=== PATIENT | female | born 1935 ===

== ENCOUNTER 2016-10-16 07:30 | Inpatient (IN) | payer MEDICARE, OTHER ==
[~2016-10-16] VITALS: Ht 154.9 cm; Wt 90.3 kg
[2016-10-30] VITALS (16 sets, daily range): BP systolic 85–131; BP diastolic 45–67
[2016-10-30] MEDS ORDERED: ceFAZolin 1gm/50ml Premix 50 ML IV ONE (07:00)
[2016-10-30] MEDS ORDERED: NORVASC10 MG ORAL (07:08)
[2016-10-30] MEDS ORDERED: ASPIR 8181 MG ORAL (07:09)
[2016-10-30] MEDS ORDERED: CARDURA PO (07:10)
[2016-10-30] MEDS ORDERED: Surgicel 4in x 8in TOPIC ONE (07:11)
[2016-10-30] MEDS ORDERED: Bacitracin Oint 15gm Tube TOPIC ONE (07:11)
[2016-10-30] MEDS ORDERED: AMARYL PO (07:12)
[2016-10-30] MEDS ORDERED: METFORMIN HCL1000 M1 ORAL (07:13)
[2016-10-30] MEDS ORDERED: HYZAAR 100-251 EACH ORAL (07:14)
[2016-10-30] MEDS ORDERED: SIMVASTATIN40 MG ORAL (07:14)
[2016-10-30] MEDS ORDERED: NOVOLIN N100 UNIT/1 SUBQ (07:15)
[2016-10-30] MEDS ORDERED: Sterile Water For Irrig 2000ml IRRIG ONE (07:30)
[2016-10-30] MEDS ORDERED: LR 1000ml ONE (07:30)
[2016-10-30] MEDS ORDERED: NS Irrig 1000ml ONE (07:30)
[2016-10-30] MEDS ORDERED: Dexamethasone 4mg/ml vial ONE (07:30)
[2016-10-30] MEDS ORDERED: NS Irrig 1000ml IRRIG ONE (07:30)
[2016-10-30] MEDS ORDERED: Zemuron 50mg/5ml Inj IV ONE (07:30)
[2016-10-30] MEDS ORDERED: Glycopyrrolate 0.2mg/ml 1ml Vial ONE (07:30)
--- NOTE | 2016-10-30 07:39 | Pre-Procedure Note/Attestation ---
Pre-Procedure Note/Attestation Complete Prior to Procedure Planned Procedure: not applicable Procedure Narrative: radical cystectomy with neobladder possible ileal conduit Indications for Procedure Pre-Operative Diagnosis: bladder cancer Attestation I attest that I discussed the nature of the procedure; its benefits; risks and complications; and alternatives (and the risks and benefits of such alternatives ), prior to the procedure, with the patient (or the patient's legal senior patient account representative). I attest that, if there was a reasonable possibility of needing a blood transfusion, the patient (or the patient's legal senior patient account representative) was given the [facility] standardized written summary, pursuant to the Babatunde Eneida Blood Safety Act ([place] Health and Safety Code # 1645, as amended). I attest that I re-evaluated the patient just prior to the surgery and that there has been no change in the patient's H&P, except as documented below: Dariel Elizabeth MD Oct 30, 2016 07:39
[2016-10-30] MEDS ORDERED: Duramorph PF 5mg/10ml amp EPIDUR ONE (08:00)
[2016-10-30] MEDS ORDERED: cefOXitin 2gm Inj ONE (08:20)
--- NOTE | 2016-10-30 10:12 | Anethesia Preoperative Eval ---
Anesthesia Pre-op PMH/ROS General Date of Evaluation: Oct 30, 2016 Time of Evaluation: 07:25 Anesthesiologist: Gladys ASA Score: ASA 3 Mallampati Score Class I : Soft palate, uvula, fauces, pillars visible Class II: Soft palate, uvula, fauces visible Class III: Soft palate, base of uvula visible Class IV: Only hard plate visible Mallampati Classification: Class II Surgeon: Glenn Diagnosis: BLADDER Cancer Surgical Procedure: Cystectomy Anesthesia History: none Family History: no anesthesia problems Allergies: Coded Allergies: No Known Allergies (Unverified , 10/29/16) Medications: see eMAR Past Medical History Cardiovascular: Reports: HTN Pulmonary: Denies: COPD, CHACHO, asthma, other Gastrointestinal/Genitourinary: Denies: CRI, ESRD, GERD, other Endocrine: Reports: DM HEENT: Denies: NENANA (L), NENANA (R), cataract (L), cataract (R), glaucoma, other Hematology/Immune: Denies: DVT, anemia, bleeding disorder, other Musculoskeletal/Integumentary: Reports: DJD Anesthesia Pre-op Phys. Exam Physician Exam Last Vital Signs Date Time Temp Pulse Resp B/P Pulse Ox O2 Delivery O2 Flow Rate FiO2 10/30/16 07:30 98.5 58 18 131/67 95 Room Air Neurologic: CN 2-12 intact Cardiovascular: RRR, no M/R/G Respiratory: CTA Gastrointestinal: S/NT/ND Airway Exam Mallampati Score: Class II ROM: full Dentures: lower, upper WILLIAM FRY M.D. Oct 30, 2016 10:12
[2016-10-30] MEDS ORDERED: Hydromorphone 0.5mg/0.5ml inj IVP PRN (10:15)
[2016-10-30] MEDS ORDERED: Ketorolac 30mg Inj IV PRN (10:15)
[2016-10-30] MEDS ORDERED: Norco 5mg/325mg tab ORAL PRN (10:15)
[2016-10-30] MEDS ORDERED: fentaNYL 100 mcg/2 mL IV PRN (10:15)
[2016-10-30] MEDS ORDERED: metroNIDAZOLE 500mg 100 ML ONE (10:19)
[2016-10-30] MEDS ORDERED: Neostigmine 1mg/ml 10ml Inj ONE (12:03)
[2016-10-30] MEDS ORDERED: D5 1/2NS w/KCl 20mEq 1,000 ML IV SCH (12:05)
--- NOTE | 2016-10-30 12:11 | Brief Operative Note ---
Immediate Post Operative Note Operative Note Pre-op Diagnosis: bladder cancer Procedure: Radical cystectomy with neobladder Post-op Diagnosis: same Post-op Diagnosis: same as pre-op Surgeon: Eugenio Elizabeth Laundry Pricing Clerk: Stan Salguero Anesthesia: general Specimen: yes Complications: none Condition: stable Estimated Blood Loss: minimal Drains: FERDINAND Implant(s) used?: No Dariel Elizabeth MD Oct 30, 2016 12:11
[2016-10-30] MEDS ORDERED: HYDROmorphone 1mg/ml Carpuject IVP PRN (12:15)
[2016-10-30 13:03] LABS: BASOPHILS % (AUTO) 0.9 % (0.0-2.0); EOSINOPHILS % (AUTO) 0.3 % (0.0-3.0); MEAN CORPUSCULAR HEMOGLOBIN 30.7 PG (27.0-31.0); MEAN CORPUSCULAR HGB CONC 32.1 G/DL (32.0-36.0); MEAN CORPUSCULAR VOLUME 95 FL (80-99); MEAN PLATELET VOLUME 7.8 FL (6.5-10.1); MONOCYTES % (AUTO) 6.5 % (1.0-10.0); NEUTROPHILS % (AUTO) 81.4 % (45.0-75.0); PLATELET COUNT 212 K/UL (150-450); RED BLOOD COUNT 3.52 M/UL (4.20-5.40); WHITE BLOOD COUNT 14.5 K/UL (4.8-10.8)
[2016-10-30 13:08] LABS: IONIZED CALCIUM 1.02 mmol/L (1.10-1.35)
[2016-10-30 13:14] LABS: ANION GAP 11 (5-15); CALCIUM 7.8 mg/dL (8.6-10.2); CARBON DIOXIDE 25 mEQ/L (20-30); CHLORIDE 105 mEQ/L (98-107); HEMOLYSIS 8; MAGNESIUM 1.6 mg/dL (1.7-2.5); PHOSPHORUS 4.4 mg/dL (2.5-4.8); POTASSIUM 4.3 mEQ/L (3.4-4.9); SODIUM 141 mEQ/L (135-145)
[2016-10-30] MEDS ORDERED: LORazepam Inj 2mg/ml 1ml IV ONE (13:30)
--- NOTE | 2016-10-30 14:06 | Immediate Post-Op Evaluation ---
Immediate Post-Op Evalulation Immediate Post-Op Evalulation Procedure: Custectomy Date of Evaluation: Oct 30, 2016 Time of Evaluation: 12:25 IV Fluids: NS 4L, Alb 5% 500ml, Blood Products: PRBC 2U Estimated Blood Loss: 1500 Urinary Output: 400 Blood Pressure Systolic: 110 Blood Pressure Diastolic: 80 Pulse Rate: 65 Respiratory Rate: 20 O2 Sat by Pulse Oximetry: 98 Temperature (Fahrenheit): 98 Pain Score (1-10): 2 Nausea: No Vomiting: No Complications na Patient Status: awake Hydration Status: adequate Drug: Cefoxitin 2G Given Within 1 Hr of Incision: Yes Time Given: 08:00 WILLIAM FRY M.D. Oct 30, 2016 14:06
[2016-10-30] MEDS: cefOXitin Sod 2 GM in D5W 110 ML IV SCH ×2 (18:03→22:46)
[2016-10-30] MEDS: NovoLOG Insulin Flexpen SUBQ SCH ×2 (18:04→22:15)
[2016-10-31] VITALS: BP 100/56
[2016-10-31 04:00] VITALS: BP 99/58
[2016-10-31] MEDS: cefOXitin Sod 2 GM in D5W 110 ML IV SCH (04:31)
[2016-10-31 05:16] LABS: MEAN CORPUSCULAR HEMOGLOBIN 31.1 PG (27.0-31.0); MEAN CORPUSCULAR HGB CONC 32.7 G/DL (32.0-36.0); MEAN CORPUSCULAR VOLUME 95 FL (80-99); MEAN PLATELET VOLUME 6.9 FL (6.5-10.1); PLATELET COUNT 197 K/UL (150-450); RED CELL DISTRIBUTION WIDTH 13.3 % (11.6-14.8); WHITE BLOOD COUNT 15.5 K/UL (4.8-10.8)
[2016-10-31 05:45] LABS: ANION GAP 11 (5-15); CALCIUM 7.7 mg/dL (8.6-10.2); CARBON DIOXIDE 25 mEQ/L (20-30); CHLORIDE 102 mEQ/L (98-107); CREATININE 1.3 mg/dL (0.5-0.9); HEMOLYSIS 4; POTASSIUM 5.5 mEQ/L (3.4-4.9); SODIUM 138 mEQ/L (135-145)
[2016-10-31] MEDS: NovoLOG Insulin Flexpen SUBQ SCH ×4 (05:55→20:25)
[2016-10-31] MEDS ORDERED: Calcium Gluconate 10% 2 GM in NS 110 ML IVPB ONE (06:45)
[2016-10-31] MEDS ORDERED: Sodium Polystyrene Sulfonate Enema RECTAL ONE (06:45)
[2016-10-31] MEDS ORDERED: Calcium Gluconate 1gm/10ml vial ONE (06:52)
[2016-10-31 07:30] LABS: IONIZED CALCIUM 0.98 mmol/L (1.10-1.35)
[2016-10-31 08:00] VITALS: BP 100/46
[2016-10-31 08:04] LABS: ABG ALLEN TEST POSITIVE; ABG BASE EXCESS -0.6
--- NOTE | 2016-10-31 10:09 | Diagnostic Imaging Report ---
Indication: SOB Technique: One view of the chest Comparison: none Findings: Patient body habitus limits evaluation. Inspiration is suboptimal. There is crowding of the vascular markings and atelectasis at both lung bases. Minimal consolidation at the left lung base not completely excludable. No definite acute infiltrates, or congestion. There may be slight blunting of the left costophrenic sulcus. The heart is borderline enlarged Impression: Hypoventilatory exam with basilar crowding and atelectasis. Cannot rule out consolidation or small pleural effusion at the left lung base Borderline cardiomegaly This agrees with the preliminary interpretation provided overnight by [facility] teleradiology service.
--- NOTE | 2016-10-31 10:18 | Consultation ---
DATE OF CONSULTATION: 10/31/2016 CONSULTING PHYSICIAN: Kale Iniguez M.D. ATTENDING PHYSICIAN: Dariel Elizabeth M.D. REFERRING PHYSICIAN: Dariel Elizabeth M.D. REASON FOR CONSULTATION: Medical management. HISTORY OF PRESENT ILLNESS: This is a 80-year-old female who was admitted to the medical center. The patient underwent radical cystectomy with neobladder. The patient is postoperatively now hypoxemic. I was called to assist and evaluate further. The patient with scant sputum production. There is no chest pain. The patient's daughter notes increasing edema. The patient's chart was reviewed. The patient had undergone previous tumor removal, but now has extensive symptomatic tumor that required intervention. The patient does have long-standing history of smoking and continues to smoke two packs per day. PAST MEDICAL HISTORY: The patient's past medical history is notable for diabetes, hypertension, hyperlipidemia, and questionable history of underlying lung disease. MEDICATIONS: Reviewed and include Norvasc 10, baby aspirin 81 daily, NPH insulin, Hyzaar, metformin, and Zocor. ALLERGIES: None known. SOCIAL HISTORY: The patient lives at home. She is retired. She does smoke as mentioned, 2 packs per day. She has no significant alcohol use. FAMILY HISTORY: Mother at age 90, otherwise negative. REVIEW OF SYSTEMS: Otherwise as above. PHYSICAL EXAMINATION: GENERAL: A well-developed female in no acute distress. VITAL SIGNS: Temperature 98, heart rate 77, respiratory rate 18, blood pressure 99/58, and saturation 98%. HEENT: Fairly negative. Extraocular movements grossly intact. NECK: Supple. No adenopathy. LUNGS: Moderate breath sounds. Symmetric. No rhonchi or wheezes. CARDIAC: S1 and S2. Regular rate and rhythm without murmurs, rubs, or gallops. ABDOMEN: Overall slightly tender. Minimal bowel sounds. EXTREMITIES: No cyanosis, clubbing, or edema. NEUROLOGIC: Grossly nonfocal. Alert and oriented x3. LABORATORY DATA: Laboratory data reviewed. White blood cell count 18.5, hemoglobin 10, hematocrit 31, platelets 197,000. Chemistry, potassium 5.5, BUN 30, creatinine 1.3, blood sugar 283. IMPRESSION: 1. Acute renal insufficiency, noted hyperkalemia, possibly fluid overload. 2. Hypertension per history. 3. Long-standing history of smoking. 4. Bladder cancer, status post resection. RECOMMENDATION: The patient is on IV hydration. We will give the patient one dose of Lasix. We will also give nebulized therapy. We will obtain chest x-ray and stat ABG. We will obtain sliding scale insulin and monitor clinically. The patient is currently hypotensive and therefore, we will hold any antihypertensive medications at present. Kale Iniguez M.D. DR: Bita JOB#: [id number] CC: BRENNAN
[2016-10-31 10:46] LABS: ANION GAP 12 (5-15); CARBON DIOXIDE 26 mEQ/L (20-30); CHLORIDE 104 mEQ/L (98-107); CREATININE 1.1 mg/dL (0.5-0.9); HEMOLYSIS 3; POTASSIUM 4.6 mEQ/L (3.4-4.9); SODIUM 142 mEQ/L (135-145)
[2016-10-31] MEDS ORDERED: DuoNeb 0.5-3(2.5)mg/3ml neb HHN SCH (11:00)
[2016-10-31] MEDS: DuoNeb 0.5-3(2.5)mg/3ml neb HHN SCH ×4 (11:00→23:12)
--- NOTE | 2016-10-31 11:00 | 48 Hour Post Anesthesia Eval ---
Post Anesthesia Evaluation Procedure: Custectomy Date of Evaluation: Oct 31, 2016 Time of Evaluation: 10:56 Blood Pressure Systolic: 104 0: 57 Pulse Rate: 78 Respiratory Rate: 28 Temperature (Fahrenheit): 97.8 O2 Sat by Pulse Oximetry: 94 - on non rebreather mask hypercapnic Airway: other - slightly obstructed Nausea: No Vomiting: No Pain Intensity: 4 Hydration Status: adequate Cardiopulmonary Status: significant dyspnea at rest some wheezing bilaterally, diminished breath sounds over both lower lobes Mental Status/LOC: other - sedated arousable Follow-up Care/Observations: n/a Post-Anesthesia Complications: none Follow-up care needed: N/A WERO KAMARA M.D. Oct 31, 2016 11:00
[2016-10-31] MEDS ORDERED: NovoLOG Insulin Flexpen SUBQ SCH (11:30)
--- NOTE | 2016-10-31 11:40 | Diagnostic Imaging Report ---
Indication: SOB Technique: One view of the chest Comparison: 10/30/2016 Findings: There is some atelectasis at the left lung base again demonstrated. Heart remains borderline enlarged. Findings are unchanged Impression: Unchanged, over one day, findings as above.
[2016-10-31 12:00] VITALS: BP 113/60
--- NOTE | 2016-10-31 12:11 | Diagnostic Imaging Report ---
APPROVED REPORT CPT Code: 40932 Present Symptoms Shortness of breath BILATERAL: Imaging reveals a patent deep venous system bilaterally. There is no evidence of thrombus within the femoral, popliteal or tibial segments. The greater saphenous veins are also within normal limits. Doppler indicates normal spontaneous flow within these segments.
[2016-10-31 12:37] LABS: ABG ALLEN TEST POSITIVE; ABG BASE EXCESS -1.1; ABG PCO2 53.1 mmHg (35.0-45.0)
[2016-10-31] MEDS: HYDROmorphone 1mg/ml Carpuject IVP PRN ×2 (13:15→19:09)
[2016-10-31 16:00] VITALS: BP 124/59
[2016-10-31 19:00] VITALS: BP 130/66
--- NOTE | 2016-10-31 20:18 | Operative Note - Dictated ---
DATE OF OPERATION: 10/30/2016 PREOPERATIVE DIAGNOSIS: History of muscle invasive bladder cancer. POSTOPERATIVE DIAGNOSIS: History of muscle invasive bladder cancer. OPERATED BY: Dariel Elizabeth M.D. LENS GRINDER ROUGH: Stan Salguero M.D. OPERATION PERFORMED: Radical cystectomy, hysterectomy, oophorectomy with creation of the intestinal neobladder and reimplantation of the . FINDINGS: Remaining urinary bladder. No evidence of distant metastasis. INDICATIONS FOR SURGERY: The patient had TURBT, which showed invasive bladder cancer. Treatment options were explained to her in multiple ways, she underwent several studies including CAT scan and CT scan and eventually decided to go for radical cystectomy with neobladder or ileal conduit. She understands the nature of surgery and all potential complications and signed a consent. She was brought to the operating room, placed in a supine position and prepped and draped in a standard fashion. Under general anesthesia, a midline abdominal incision was made. Peritoneum was entered and ureters were dissected to get a view of the bladder, both ureters were dissected towards the bladder, and frozen section was send out in both ureters. Right one showed some possibility of dysphagia and more suctions of the ureters were send out showing eventually negative frozen sections. After the ureters were sigmoid cecum and approximately 22 cm of terminal ileum was and extended dissection towards the hepatic flexure freeing up both colon segments. After that, a radical cystectomy was performed. Bladder, ureters, and ovaries were removed and preserving bladder neck, which was carefully dissected preserving pelvic muscles and for future implantation of the neobladder. Bladder was removed and neobladder was constructed from 20 cm of cecum, 20 cm of ileum, to implant the ureters. After the completion of the neobladder, the ureters were implanted into the fashion to a area and stented with a 7-Kazakh 26 cm stents. Suprapubic tube was placed into the bladder as well as the Marie catheter. Anastomose was accomplished with six 2-0 Vicryl sutures. Bladder was irrigated copiously. There is no evidence leaks. FERDINAND drain was placed into the wound. Bladder continuity was restudied by Dr. Gaspar and after cutting the omentum, wound was closed with three layers of Vicryl sutures and meghan for the skin. Estimated blood loss was approximately 600 mL. The patient received 2 units of packed red blood cells as well as crystalloid during surgery. No evidence of significant complications. Prior to closure sponge count and instrument count was correct. Dariel Elizabeth M.D. DR: LEV JOB#: [id number] CC:
--- NOTE | 2016-10-31 21:48 | Internal Med Progress Note ---
Subjective Physician Name Ty Gooden Attending Physician Dariel Elizabeth MD Current Medications Medications (Trade) Dose Ordered Sig/Hosea Route PRN Reason Start Time Stop Time Status Last Admin Dose Admin Acetaminophen (Tylenol) 650 mg Q6H PRN ORAL Mild Pain (Pain Scale 1-3) 10/31/16 11:00 11/30/16 10:59 Albuterol/ Ipratropium (DuoNeb 0.5-3(2.5)mg/3ml) 3 ml Q4HRT HHN 10/31/16 11:00 11/05/16 10:59 10/31/16 19:22 Dextrose (Dextrose 50%) STAT PRN IV Hypoglycemia 10/31/16 11:00 11/30/16 10:59 Hydromorphone HCl (Dilaudid) 1 mg Q3H PRN IVP pain score 4-6 10/31/16 11:00 11/07/16 10:59 10/31/16 19:09 Insulin Aspart (NovoLOG) BEFORE MEALS AND HS SUBQ 10/31/16 11:30 11/30/16 11:29 10/31/16 20:25 Ondansetron HCl (Zofran) 4 mg Q6H PRN IVP Nausea & Vomiting 10/31/16 11:00 11/30/16 10:59 Sodium Chloride (Sodium Chloride 1000ml bag) 1,000 ml @ 100 mls/hr Q10H IV 10/31/16 11:00 11/30/16 10:59 10/31/16 17:26 Allergies: Coded Allergies: No Known Allergies (Unverified , 10/29/16) Subjective awake, responsive, transfer to [facility] due to SOB, Objective Last Vital Signs Date Time Temp Pulse Resp B/P Pulse Ox O2 Delivery O2 Flow Rate FiO2 10/31/16 19:50 78 20 93 Non-Rebreather 15.0 100 10/31/16 19:39 97.9 10/31/16 19:00 130/66 Laboratory Tests Test 10/31/16 04:35 10/31/16 08:00 10/31/16 10:00 10/31/16 12:30 White Blood Count 15.5 K/UL (4.8-10.8) H Red Blood Count 3.30 M/UL (4.20-5.40) L Hemoglobin 10.3 G/DL (12.0-16.0) L Hematocrit 31.4 % (37.0-47.0) L Mean Corpuscular Volume 95 FL (80-99) Mean Corpuscular Hemoglobin 31.1 PG (27.0-31.0) H Mean Corpuscular Hemoglobin Concent 32.7 G/DL (32.0-36.0) Red Cell Distribution Width 13.3 % (11.6-14.8) Platelet Count 197 K/UL (150-450) Mean Platelet Volume 6.9 FL (6.5-10.1) Neutrophils (%) (Auto) % (45.0-75.0) Lymphocytes (%) (Auto) % (20.0-45.0) Monocytes (%) (Auto) % (1.0-10.0) Eosinophils (%) (Auto) % (0.0-3.0) Basophils (%) (Auto) % (0.0-2.0) Sodium Level 138 mEQ/L (135-145) 142 mEQ/L (135-145) Potassium Level 5.5 mEQ/L (3.4-4.9) H 4.6 mEQ/L (3.4-4.9) Chloride Level 102 mEQ/L (98-107) 104 mEQ/L (98-107) Carbon Dioxide Level 25 mEQ/L (20-30) 26 mEQ/L (20-30) Anion Gap 11 (5-15) 12 (5-15) Blood Urea Nitrogen 30 mg/dL (7-23) H 32 mg/dL (7-23) H Creatinine 1.3 mg/dL (0.5-0.9) H 1.1 mg/dL (0.5-0.9) H Estimat Glomerular Filtration Rate mL/min (>60) mL/min (>60) Glucose Level 283 mg/dL (74-106) H 228 mg/dL (74-106) H Calcium Level 7.7 mg/dL (8.6-10.2) L 8.0 mg/dL (8.6-10.2) L Ionized Calcium (Measured) 0.98 mmol/L (1.10-1.35) L Pro-B-Type Natriuretic Peptide 241 pg/mL (0-450) Arterial Blood pH 7.280 (7.350-7.450) 7.302 (7.350-7.450) Arterial Blood Partial Pressure CO2 58.0 mmHg (35.0-45.0) *H 53.1 mmHg (35.0-45.0) H Arterial Blood Partial Pressure O2 76.1 mmHg (75.0-100.0) 78.0 mmHg (75.0-100.0) Arterial Blood HCO3 26.8 mmol/L (22.0-26.0) H 25.7 mmol/L (22.0-26.0) Arterial Blood Oxygen Saturation 93.4 % (92.0-98.0) 94.0 % (92.0-98.0) Arterial Blood Base Excess -0.6 -1.1 Bebeto Test Positive Positive Intake and Output 10/30/16 10/31/16 19:00 07:00 Intake Total 2600 ml 760 ml Output Total 2430 ml 730 ml Balance 170 ml 30 ml Intake IV Total 2000 ml 760 ml Blood Product 600 ml Output Urine Total 830 ml 650 ml Drainage Total 100 ml 20 ml Estimated Blood Loss 1500 ml Other 60 ml # Voids 1 Objective GENERAL: A well-developed female in no acute distress, less SOB, awake. HEENT: PERRLA, EOMI. NECK: Supple. No adenopathy. LUNGS: decrease basal breath sounds. Symmetric. No rhonchi or wheezes. CARDIAC: S1 and S2. Regular rate and rhythm without murmurs, distant heart sound. ABDOMEN: generalized tenderness. Minimal bowel sounds. Midline surgical incision with meghan, Right suprapubic cath, Left FERDINAND drainage. : Marie Cath with yellow urine. EXTREMITIES: No cyanosis, clubbing, or edema. NEUROLOGIC: Grossly nonfocal. Alert and oriented x3. CN 2-12 intact. Assessment/Plan Assessment/Plan IMPRESSION: 1. Acute renal insufficiency, noted hyperkalemia, possibly fluid overload. 2. Hypertension 3. Long-standing history of smoking. 4. Invasive Bladder cancer, status post Radical cystectomy, hysterectomy, oophorectomy with creation of the intestinal neobladder. 5. Morbid Obesity. RECOMMENDATION: F/U with CXR , ABG F/U with Pulmonary consult monitor labs Pain medication. F/U with Dr. Elizabeth recommendations PT Mobility once more stable Ty Gooden MD Oct 31, 2016 21:48
[2016-11-01] VITALS: BP 110/44
[2016-11-01] MEDS: DuoNeb 0.5-3(2.5)mg/3ml neb HHN SCH ×6 (03:42→22:50)
[2016-11-01 04:00] VITALS: BP 110/43
[2016-11-01] MEDS: HYDROmorphone 1mg/ml Carpuject IVP PRN ×3 (04:29→09:18)
[2016-11-01 05:12] LABS: MEAN CORPUSCULAR HEMOGLOBIN 31.6 PG (27.0-31.0); MEAN CORPUSCULAR HGB CONC 32.3 G/DL (32.0-36.0); MEAN CORPUSCULAR VOLUME 98 FL (80-99); MEAN PLATELET VOLUME 7.9 FL (6.5-10.1); PLATELET COUNT 186 K/UL (150-450); RED BLOOD COUNT 3.04 M/UL (4.20-5.40); RED CELL DISTRIBUTION WIDTH 13.8 % (11.6-14.8); WHITE BLOOD COUNT 19.1 K/UL (4.8-10.8)
[2016-11-01 05:37] LABS: ANION GAP 15 (5-15); CALCIUM 8.5 mg/dL (8.6-10.2); CARBON DIOXIDE 23 mEQ/L (20-30); CHLORIDE 105 mEQ/L (98-107); CREATININE 0.8 mg/dL (0.5-0.9); HEMOLYSIS 5; POTASSIUM 4.8 mEQ/L (3.4-4.9); SODIUM 143 mEQ/L (135-145)
[2016-11-01] MEDS: NovoLOG Insulin Flexpen SUBQ SCH ×3 (05:53→21:04)
--- NOTE | 2016-11-01 07:31 | Pulmonology Progress Note ---
Assessment/Plan Assessment/Plan IMPRESSION: 1. Acute renal insufficiency, 2. Hypertension per history. 3. Long-standing history of smoking. 4. Bladder cancer, status post resection 5. Hypoxemia 6. Co2 retention 7. ?COPD 8. ?CHACHO PLAN taper fi02 transfer to monitor ABG monitor fluid status no need for diuresis echo post operative care SCD. Subjective Allergies: Coded Allergies: No Known Allergies (Unverified , 10/29/16) Subjective awake still on high flow Objective Last 24 Hour Vital Signs Date Time Temp Pulse Resp B/P Pulse Ox O2 Delivery O2 Flow Rate FiO2 11/01/16 04:59 97.9 11/01/16 04:00 98.2 87 24 110/43 90 Ambu-Bag 3.0 11/01/16 03:55 78 20 92 Non-Rebreather 15.0 100 11/01/16 03:42 86 20 91 Non-Rebreather 15.0 100 11/01/16 00:00 98.0 78 24 110/44 90 Ambu-Bag 3.0 10/31/16 23:30 81 20 95 Non-Rebreather 15.0 100 10/31/16 23:12 82 20 94 Non-Rebreather 15.0 100 10/31/16 19:50 78 20 93 Non-Rebreather 15.0 100 10/31/16 19:22 82 20 94 Non-Rebreather 15.0 100 10/31/16 19:00 97.9 81 20 130/66 95 Ambu-Bag 3.0 10/31/16 16:00 78 10/31/16 16:00 97.9 85 20 124/59 95 Ambu-Bag 3.0 10/31/16 14:59 80 20 92 Non-Rebreather 15.0 100 10/31/16 14:56 82 20 93 Non-Rebreather 15.0 100 10/31/16 12:00 97.9 78 26 113/60 94 Non-Rebreather 15.0 100 10/31/16 11:00 78 28 94 10/31/16 10:48 78 20 92 Non-Rebreather 15.0 100 10/31/16 10:43 78 20 92 Non-Rebreather 15.0 100 10/31/16 08:00 99.3 75 20 100/46 96 Non-Rebreather 15.0 Intake and Output 10/31/16 11/01/16 19:00 07:00 Intake Total 800 ml 800 ml Output Total 1190 ml 1560 ml Balance -390 ml -760 ml Intake IV Total 800 ml 800 ml Output Urine Total 750 ml 100 ml Drainage Total 40 ml 60 ml Other 400 ml 1400 ml Objective GENERAL: A well-developed female in no acute distress. HEENT: Fairly negative. Extraocular movements grossly intact. NECK: Supple. No adenopathy. LUNGS: Moderate breath sounds. Symmetric. No rhonchi or wheezes. CARDIAC: S1 and S2. Regular rate and rhythm without murmurs, rubs, or gallops. ABDOMEN: Overall slightly tender. Minimal bowel sounds. no HSM EXTREMITIES: No cyanosis, clubbing, or edema. NEUROLOGIC: Grossly nonfocal. Alert and oriented x3. Laboratory Tests 10/31/16 08:00: Arterial Blood pH 7.280L, Arterial Blood Partial Pressure CO2 58.0*H, Arterial Blood Partial Pressure O2 76.1, Arterial Blood HCO3 26.8H, Arterial Blood Oxygen Saturation 93.4, Arterial Blood Base Excess -0.6, Bebeto Test Positive 10/31/16 10:00: Sodium Level 142, Potassium Level 4.6, Chloride Level 104, Carbon Dioxide Level 26, Anion Gap 12, Blood Urea Nitrogen 32H, Creatinine 1.1H, Estimat Glomerular Filtration Rate , Glucose Level 228H, Calcium Level 8.0L 10/31/16 12:30: Arterial Blood pH 7.302L, Arterial Blood Partial Pressure CO2 53.1H, Arterial Blood Partial Pressure O2 78.0, Arterial Blood HCO3 25.7, Arterial Blood Oxygen Saturation 94.0, Arterial Blood Base Excess -1.1, Bebeto Test Positive 11/01/16 04:20: Sodium Level 143, Potassium Level 4.8, Chloride Level 105, Carbon Dioxide Level 23, Anion Gap 15, Blood Urea Nitrogen 23, Creatinine 0.8, Estimat Glomerular Filtration Rate , Glucose Level 188H, Calcium Level 8.5L, White Blood Count 19.1H, Red Blood Count 3.04L, Hemoglobin 9.6L, Hematocrit 29.7L, Mean Corpuscular Volume 98, Mean Corpuscular Hemoglobin 31.6H, Mean Corpuscular Hemoglobin Concent 32.3, Red Cell Distribution Width 13.8, Platelet Count 186, Mean Platelet Volume 7.9, Neutrophils (%) (Auto) , Lymphocytes (%) (Auto) , Monocytes (%) (Auto) , Eosinophils (%) (Auto) , Basophils (%) (Auto) , Neutrophils % (Manual) [Pending], Lymphocytes % (Manual) [Pending], Platelet Estimate [Pending], Platelet Morphology [Pending] Current Medications Medications (Trade) Dose Ordered Sig/Hosea Route PRN Reason Start Time Stop Time Status Last Admin Dose Admin Acetaminophen (Tylenol) 650 mg Q6H PRN ORAL Mild Pain (Pain Scale 1-3) 10/31/16 11:00 11/30/16 10:59 Albuterol/ Ipratropium (DuoNeb 0.5-3(2.5)mg/3ml) 3 ml Q4HRT HHN 10/31/16 11:00 11/05/16 10:59 11/01/16 03:42 Dextrose (Dextrose 50%) STAT PRN IV Hypoglycemia 10/31/16 11:00 11/30/16 10:59 Hydromorphone HCl (Dilaudid) 1 mg Q3H PRN IVP pain score 4-6 10/31/16 11:00 11/07/16 10:59 11/01/16 04:29 Insulin Aspart (NovoLOG) BEFORE MEALS AND HS SUBQ 10/31/16 11:30 11/30/16 11:29 11/01/16 05:53 Ondansetron HCl (Zofran) 4 mg Q6H PRN IVP Nausea & Vomiting 10/31/16 11:00 11/30/16 10:59 11/01/16 00:00 Sodium Chloride (Sodium Chloride 1000ml bag) 1,000 ml @ 100 mls/hr Q10H IV 10/31/16 11:00 11/30/16 10:59 11/01/16 06:14 MIKHAIL BUSTILLOS Nov 01, 2016 07:31
[2016-11-01 08:00] VITALS: BP 154/70
[2016-11-01] MEDS ORDERED: Piperacillin/Tazobactam 3.375 GM in D5W 110 ML IVPB SCH (08:00)
[2016-11-01 11:27] LABS: BAND NEUTROPHILS % (MANUAL) 2 % (0-8); BASOPHILS % (MANUAL) 0 % (0-2); EOSINOPHILS % (MANUAL) 1 % (0-3); LYMPHOCYTES % (MANUAL) 7 % (20-45); NEUTROPHILS % (MANUAL) 88 % (45-75); PLATELET ESTIMATE ADEQUATE; PLATELET MORPHOLOGY NORMAL; TOTAL CELLS COUNTED 100
[2016-11-01 11:28] LABS: ANISOCYTOSIS 1+
--- NOTE | 2016-11-01 11:28 | Diagnostic Imaging Report ---
Indication: Shortness of breath Technique: Aerosol imaging cannot be performed, due to patient being on a high volume of oxygen therapy. IV administration 5.8 mCi 99M technetium macroaggregated albumin. Images of the lungs obtained in multiple projections Comparison: Reference made to chest radiograph of earlier the same day Findings: Exam is limited due to lack of aerosol ventilation images. Perfusion images demonstrate slightly heterogeneous tracer distribution, but no focal segmental or subsegmental perfusion defects. Impression: Unable to aside probability, given the absence of ventilation/aerosol imaging. However, there is no evidence of pulmonary embolus on the available images This agrees with the preliminary interpretation provided overnight by Dr. Townsend
[2016-11-01] MEDS ORDERED: NovoLOG Insulin Flexpen SUBQ SCH (11:30)
[2016-11-01 12:00] VITALS: BP 140/72
[2016-11-01] MEDS: Ketorolac 30mg Inj IV SCH ×2 (12:34→17:54)
[2016-11-01] MEDS ORDERED: NS Irrig 1000ml ONE (15:10)
[2016-11-01] MEDS ORDERED: Tubing IV Secondary IV ONE (15:10)
--- NOTE | 2016-11-01 15:22 | Internal Med Progress Note ---
Subjective Physician Name GiacomoTy Attending Physician Dariel Elizabeth MD Current Medications Medications (Trade) Dose Ordered Sig/Hosea Route PRN Reason Start Time Stop Time Status Last Admin Dose Admin Acetaminophen (Tylenol) 650 mg Q6H PRN ORAL Mild Pain (Pain Scale 1-3) 11/01/16 11:00 12/01/16 10:59 Albuterol/ Ipratropium (DuoNeb 0.5-3(2.5)mg/3ml) 3 ml Q4HRT HHN 11/01/16 11:00 11/06/16 10:59 11/01/16 11:26 Dextrose (Dextrose 50%) STAT PRN IV Hypoglycemia 11/01/16 11:00 12/01/16 10:59 Hydromorphone HCl (Dilaudid) 1 mg Q3H PRN IVP pain score 4-6 11/01/16 11:00 11/08/16 10:59 Insulin Aspart (NovoLOG) BEFORE MEALS AND HS SUBQ 11/01/16 11:30 12/01/16 11:29 11/01/16 12:40 Ketorolac Tromethamine (Toradol 30mg) 15 mg Q6HR IV 11/01/16 12:15 11/06/16 12:14 11/01/16 12:34 Ondansetron HCl (Zofran) 4 mg Q6H PRN IVP Nausea & Vomiting 11/01/16 11:00 12/01/16 10:59 Piperacillin Sod/ Tazobactam Sod/ Dextrose (Zosyn/D5W) 110 ml @ 27.5 mls/hr Q8HR@0000,0800,1600 IVPB 11/01/16 16:00 11/08/16 15:59 Sodium Chloride 1,000 ml @ 100 mls/hr Q10H IV 11/01/16 10:15 12/01/16 10:14 11/01/16 12:37 Allergies: Coded Allergies: No Known Allergies (Unverified , 10/29/16) Subjective awake, responsive, transfer out of [facility] to Medical floor. Daughter at bedside. Objective Last Vital Signs Date Time Temp Pulse Resp B/P Pulse Ox O2 Delivery O2 Flow Rate FiO2 11/01/16 13:04 97.7 11/01/16 12:00 86 21 140/72 95 Non-Rebreather 15.0 11/01/16 11:36 100 Laboratory Tests Test 11/01/16 04:20 White Blood Count 19.1 K/UL (4.8-10.8) H Red Blood Count 3.04 M/UL (4.20-5.40) L Hemoglobin 9.6 G/DL (12.0-16.0) L Hematocrit 29.7 % (37.0-47.0) L Mean Corpuscular Volume 98 FL (80-99) Mean Corpuscular Hemoglobin 31.6 PG (27.0-31.0) H Mean Corpuscular Hemoglobin Concent 32.3 G/DL (32.0-36.0) Red Cell Distribution Width 13.8 % (11.6-14.8) Platelet Count 186 K/UL (150-450) Mean Platelet Volume 7.9 FL (6.5-10.1) Neutrophils (%) (Auto) % (45.0-75.0) Lymphocytes (%) (Auto) % (20.0-45.0) Monocytes (%) (Auto) % (1.0-10.0) Eosinophils (%) (Auto) % (0.0-3.0) Basophils (%) (Auto) % (0.0-2.0) Differential Total Cells Counted 100 Neutrophils % (Manual) 88 % (45-75) H Lymphocytes % (Manual) 7 % (20-45) L Monocytes % (Manual) 2 % (1-10) Eosinophils % (Manual) 1 % (0-3) Basophils % (Manual) 0 % (0-2) Band Neutrophils 2 % (0-8) Platelet Estimate Adequate Platelet Morphology Normal Anisocytosis 1+ Sodium Level 143 mEQ/L (135-145) Potassium Level 4.8 mEQ/L (3.4-4.9) Chloride Level 105 mEQ/L (98-107) Carbon Dioxide Level 23 mEQ/L (20-30) Anion Gap 15 (5-15) Blood Urea Nitrogen 23 mg/dL (7-23) Creatinine 0.8 mg/dL (0.5-0.9) Estimat Glomerular Filtration Rate mL/min (>60) Glucose Level 188 mg/dL (74-106) H Calcium Level 8.5 mg/dL (8.6-10.2) L Microbiology Date/Time Source Procedure Growth Status 10/30/16 07:25 Nasal Nares MRSA Culture - Final NO METHICILLIN RESISTANT STAPH AUREUS... Complete Intake and Output 10/31/16 11/01/16 19:00 07:00 Intake Total 800 ml 800 ml Output Total 1190 ml 1560 ml Balance -390 ml -760 ml Intake IV Total 800 ml 800 ml Output Urine Total 750 ml 100 ml Drainage Total 40 ml 60 ml Other 400 ml 1400 ml Objective GENERAL: A well-developed female in no acute distress, less SOB, awake. HEENT: PERRLA, EOMI. NECK: Supple. No adenopathy. LUNGS: decrease basal breath sounds. Symmetric. No rhonchi or wheezes. CARDIAC: S1 and S2. Regular rate and rhythm without murmurs, distant heart sound. ABDOMEN: generalized tenderness. Minimal bowel sounds. Obesity, Midline surgical incision with meghan, Right suprapubic cath, Left FERDINAND drainage. : Marie Cath with yellow urine. EXTREMITIES: No cyanosis, clubbing, or edema. NEUROLOGIC: Grossly nonfocal. Alert and oriented x3. CN 2-12 intact. Assessment/Plan Assessment/Plan IMPRESSION: 1. Acute renal insufficiency / ATN improving. 2. Hypertension 3. Long-standing history of smoking. 4. Invasive Bladder cancer, status post Radical cystectomy, hysterectomy, oophorectomy with creation of the intestinal neobladder. 5. Morbid Obesity. 6. DM 2 7. Dyslipidemia. 8. Hypoxemia. 9. Anemia RECOMMENDATION: Duplex and V/Q scan negative monitor labs NPO IVF Abx: Zosyn Pain medication. F/U with Dr. Elizabeth recommendations PT Mobility / OOB to Chair discuss with daughter at bedside extensively Ty Gooden MD Nov 01, 2016 15:21
[2016-11-01 16:00] VITALS: BP 140/53
[2016-11-01] MEDS: Piperacillin/Tazobactam 3.375 GM in D5W 110 ML IVPB SCH (16:13)
[2016-11-01 20:00] VITALS: BP 110/54
[2016-11-02] VITALS: BP 126/64
[2016-11-02] MEDS: Piperacillin/Tazobactam 3.375 GM in D5W 110 ML IVPB SCH ×3 (00:54→16:35)
[2016-11-02] MEDS: Ketorolac 30mg Inj IV SCH ×4 (00:54→17:14)
[2016-11-02] MEDS: DuoNeb 0.5-3(2.5)mg/3ml neb HHN SCH ×6 (02:37→23:16)
[2016-11-02] MEDS: HYDROmorphone 1mg/ml Carpuject IVP PRN ×2 (03:39→09:43)
[2016-11-02 04:00] VITALS: BP 142/53
[2016-11-02] MEDS: NovoLOG Insulin Flexpen SUBQ SCH ×4 (06:58→20:52)
[2016-11-02 07:15] LABS: MEAN CORPUSCULAR HEMOGLOBIN 31.6 PG (27.0-31.0); MEAN CORPUSCULAR VOLUME 99 FL (80-99); MEAN PLATELET VOLUME 7.7 FL (6.5-10.1); PLATELET COUNT 190 K/UL (150-450); RED BLOOD COUNT 2.76 M/UL (4.20-5.40); WHITE BLOOD COUNT 17.6 K/UL (4.8-10.8)
[2016-11-02 07:35] LABS: ANION GAP 13 (5-15); CALCIUM 8.7 mg/dL (8.6-10.2); CARBON DIOXIDE 25 mEQ/L (20-30); CHLORIDE 111 mEQ/L (98-107); CREATININE 0.8 mg/dL (0.5-0.9); HEMOLYSIS 2; POTASSIUM 4.4 mEQ/L (3.4-4.9); SODIUM 149 mEQ/L (135-145)
[2016-11-02 07:55] LABS: TROPONIN I < 0.30 ng/mL (<=0.30)
[2016-11-02 08:03] LABS: PHOSPHORUS 2.2 mg/dL (2.5-4.8)
[2016-11-02] MEDS ORDERED: NS Irrig 1000ml ONE (08:26)
[2016-11-02 08:38] VITALS: BP 125/49
[2016-11-02 09:33] LABS: ANISOCYTOSIS 1+; BAND NEUTROPHILS % (MANUAL) 0 % (0-8); BASOPHILS % (MANUAL) 0 % (0-2); EOSINOPHILS % (MANUAL) 0 % (0-3); LYMPHOCYTES % (MANUAL) 11 % (20-45); NEUTROPHILS % (MANUAL) 83 % (45-75); PLATELET ESTIMATE ADEQUATE; PLATELET MORPHOLOGY NORMAL; TOTAL CELLS COUNTED 100
[2016-11-02 10:00] LABS: ABG ALLEN TEST POSITIVE; ABG BASE EXCESS 1.1; ABG PCO2 49.3 mmHg (35.0-45.0)
--- NOTE | 2016-11-02 11:07 | Pulmonology Progress Note ---
Assessment/Plan Assessment/Plan IMPRESSION: 1. Acute renal insufficiency, 2. Hypertension per history. 3. Long-standing history of smoking. 4. Bladder cancer, status post resection 5. Hypoxemia 6. Co2 retention 7. ?COPD 8. ?CHACHO 9. Hypoxemia PLAN taper fi02; much better transferred to 3E monitor ABG for change monitor fluid status; sodium elevated no need for diuresis echo post operative care SCD. ambulate Subjective Allergies: Coded Allergies: No Known Allergies (Unverified , 10/29/16) Subjective awake still on 55% walking with therapist Objective Last 24 Hour Vital Signs Date Time Temp Pulse Resp B/P Pulse Ox O2 Delivery O2 Flow Rate FiO2 11/02/16 09:11 81 125/49 11/02/16 08:38 98.0 81 19 125/49 94 Nasal Cannula 15.0 11/02/16 07:35 76 22 96 Venturi Mask 14.0 55 11/02/16 07:31 Venturi Mask 14.0 55 11/02/16 07:30 95 Venturi Mask 14.0 55 11/02/16 07:25 82 20 95 Venturi Mask 14.0 55 11/02/16 04:00 99.9 79 20 142/53 95 Venturi Mask 15.0 11/02/16 02:35 88 20 96 Venturi Mask 14.0 55 11/02/16 02:30 86 18 94 Venturi Mask 14.0 55 11/02/16 00:00 97.9 82 19 126/64 95 Simple Mask 15.0 11/01/16 22:45 77 20 97 Venturi Mask 14.0 55 11/01/16 22:40 79 18 96 Venturi Mask 14.0 55 11/01/16 20:00 98.4 85 17 110/54 95 Room Air 11/01/16 18:50 88 20 95 Venturi Mask 14.0 55 11/01/16 18:45 86 20 94 Venturi Mask 14.0 55 11/01/16 16:07 81 140/53 11/01/16 16:00 98.2 82 19 140/53 94 Nasal Cannula 15.0 11/01/16 15:55 81 20 95 Venturi Mask 14.0 55 11/01/16 15:50 83 18 94 Venturi Mask 14.0 55 11/01/16 13:04 97.7 11/01/16 12:00 97.7 86 21 140/72 95 Non-Rebreather 15.0 11/01/16 11:36 79 20 93 Non-Rebreather 15.0 100 11/01/16 11:27 83 18 94 Non-Rebreather 15.0 100 Intake and Output 11/01/16 11/02/16 19:00 07:00 Intake Total 155.0 ml 700 ml Output Total 770 ml 1180 ml Balance -615.0 ml -480 ml Intake IV Total 155.0 ml 700 ml Output Urine Total 400 ml 700 ml Drainage Total 20 ml 55 ml Other 350 ml 425 ml Objective GENERAL: A well-developed female in no acute distress. on oxygen HEENT: Fairly negative. Extraocular movements grossly intact. NECK: Supple. No adenopathy. LUNGS: Moderate breath sounds. Symmetric. No rhonchi or wheezes. CARDIAC: S1 and S2. Regular rate and rhythm without murmurs, rubs, or gallops. ABDOMEN: some tenderness. Minimal bowel sounds. no HSM EXTREMITIES: No cyanosis, clubbing, or edema. NEUROLOGIC: Grossly nonfocal. Alert and oriented x3. drains in place Laboratory Tests 11/02/16 05:10: White Blood Count 17.6H, Red Blood Count 2.76L, Hemoglobin 8.7L, Hematocrit 27.2L, Mean Corpuscular Volume 99, Mean Corpuscular Hemoglobin 31.6H, Mean Corpuscular Hemoglobin Concent 32.0, Red Cell Distribution Width 14.0, Platelet Count 190, Mean Platelet Volume 7.7, Neutrophils (%) (Auto) , Lymphocytes (%) ( Auto) , Monocytes (%) (Auto) , Eosinophils (%) (Auto) , Basophils (%) (Auto) , Differential Total Cells Counted 100, Neutrophils % (Manual) 83H, Lymphocytes % (Manual) 11L, Monocytes % (Manual) 6, Eosinophils % (Manual) 0, Basophils % ( Manual) 0, Band Neutrophils 0, Platelet Estimate Adequate, Platelet Morphology Normal, Polychromasia , Hypochromasia , Anisocytosis 1+, Sodium Level 149H, Potassium Level 4.4, Chloride Level 111H, Carbon Dioxide Level 25, Anion Gap 13 , Blood Urea Nitrogen 23, Creatinine 0.8, Estimat Glomerular Filtration Rate , Glucose Level 228H, Calcium Level 8.7, Phosphorus Level 2.2L, Magnesium Level 2.0, Troponin I < 0.30 11/02/16 08:55: Arterial Blood pH 7.350, Arterial Blood Partial Pressure CO2 49.3H, Arterial Blood Partial Pressure O2 63.6L, Arterial Blood HCO3 27.0H, Arterial Blood Oxygen Saturation 91.0L, Arterial Blood Base Excess 1.1, Bebeto Test Positive Current Medications Medications (Trade) Dose Ordered Sig/Hosea Route PRN Reason Start Time Stop Time Status Last Admin Dose Admin Acetaminophen (Tylenol) 650 mg Q6H PRN ORAL Mild Pain (Pain Scale 1-3) 11/01/16 11:00 12/01/16 10:59 Albuterol/ Ipratropium (DuoNeb 0.5-3(2.5)mg/3ml) 3 ml Q4HRT HHN 11/01/16 11:00 11/06/16 10:59 11/02/16 07:29 Amlodipine Besylate (Norvasc) 5 mg DAILY ORAL 11/01/16 16:00 12/01/16 15:59 11/02/16 09:11 Dextrose (Dextrose 50%) STAT PRN IV Hypoglycemia 11/01/16 11:00 12/01/16 10:59 Hydromorphone HCl (Dilaudid) 1 mg Q3H PRN IVP pain score 4-6 11/01/16 11:00 11/08/16 10:59 11/02/16 09:43 Insulin Aspart (NovoLOG) BEFORE MEALS AND HS SUBQ 11/01/16 16:30 12/01/16 16:29 11/02/16 06:58 Ketorolac Tromethamine (Toradol 30mg) 15 mg Q6HR IV 11/01/16 12:15 11/06/16 12:14 11/02/16 06:54 Ondansetron HCl (Zofran) 4 mg Q6H PRN IVP Nausea & Vomiting 11/01/16 11:00 12/01/16 10:59 Piperacillin Sod/ Tazobactam Sod/ Dextrose (Zosyn/D5W) 110 ml @ 27.5 mls/hr Q8HR@0000,0800,1600 IVPB 11/01/16 16:00 11/08/16 15:59 11/02/16 09:12 Sodium Chloride 1,000 ml @ 100 mls/hr Q10H IV 11/01/16 10:15 12/01/16 10:14 11/01/16 20:58 MIKHAIL BUSTILLOS Nov 02, 2016 11:07
[2016-11-02 12:11] VITALS: BP 150/74
[2016-11-02] MEDS ORDERED: D5W IV ONE (12:30)
[2016-11-02] MEDS ORDERED: POTASSIUM PHOSPHATE IV ONE (12:30)
[2016-11-02 16:00] VITALS: BP 135/61
[2016-11-02 19:50] VITALS: BP 130/62
[2016-11-03] VITALS (7 sets, daily range): BP systolic 119–151; BP diastolic 61–76
[2016-11-03] MEDS: Ketorolac 30mg Inj IV SCH ×4 (00:19→17:30)
[2016-11-03] MEDS: Piperacillin/Tazobactam 3.375 GM in D5W 110 ML IVPB SCH ×3 (00:19→15:56)
[2016-11-03] MEDS: DuoNeb 0.5-3(2.5)mg/3ml neb HHN SCH ×6 (03:08→21:02)
[2016-11-03] MEDS: NovoLOG Insulin Flexpen SUBQ SCH ×4 (06:32→20:44)
[2016-11-03 06:55] LABS: BASOPHILS % (AUTO) 0.5 % (0.0-2.0); EOSINOPHILS % (AUTO) 1.9 % (0.0-3.0); MEAN CORPUSCULAR HEMOGLOBIN 31.9 PG (27.0-31.0); MEAN CORPUSCULAR HGB CONC 32.3 G/DL (32.0-36.0); MEAN CORPUSCULAR VOLUME 99 FL (80-99); MEAN PLATELET VOLUME 7.4 FL (6.5-10.1); NEUTROPHILS % (AUTO) 84.5 % (45.0-75.0); PLATELET COUNT 226 K/UL (150-450); RED BLOOD COUNT 2.99 M/UL (4.20-5.40); RED CELL DISTRIBUTION WIDTH 13.4 % (11.6-14.8); WHITE BLOOD COUNT 15.1 K/UL (4.8-10.8)
[2016-11-03 07:12] LABS: ANION GAP 13 (5-15); CALCIUM 8.9 mg/dL (8.6-10.2); CARBON DIOXIDE 27 mEQ/L (20-30); CHLORIDE 112 mEQ/L (98-107); CREATININE 0.7 mg/dL (0.5-0.9); HEMOLYSIS 1; POTASSIUM 4.8 mEQ/L (3.4-4.9); SODIUM 152 mEQ/L (135-145)
[2016-11-03] MEDS: HYDROmorphone 1mg/ml Carpuject IVP PRN ×2 (08:51→19:03)
--- NOTE | 2016-11-03 10:09 | Pulmonology Progress Note ---
Assessment/Plan Assessment/Plan IMPRESSION: 1. Acute renal insufficiency, 2. Hypertension per history. 3. Long-standing history of smoking. 4. Bladder cancer, status post resection 5. Hypoxemia 6. Co2 retention 7. ?COPD 8. ?CHACHO 9. Hypoxemia PLAN taper fi02; further monitor ABG for change monitor fluid status; change to d5w empiric antibiotics ID evaluation repeat labs post operative care SCD. ambulate Subjective Allergies: Coded Allergies: No Known Allergies (Unverified , 10/29/16) Subjective awake now on 45% walking with therapist wbc still elevated Objective Last 24 Hour Vital Signs Date Time Temp Pulse Resp B/P Pulse Ox O2 Delivery O2 Flow Rate FiO2 11/03/16 08:48 84 151/71 11/03/16 08:37 98.1 84 21 151/71 96 Venturi Mask 15.0 11/03/16 06:44 Venturi Mask 12.0 45 11/03/16 06:44 95 Venturi Mask 120.0 45 11/03/16 06:30 84 20 99 Venturi Mask 12.0 45 11/03/16 06:25 82 18 98 Venturi Mask 12.0 45 11/03/16 04:00 97.5 75 20 141/70 95 Venturi Mask 45 11/03/16 03:10 76 20 99 Venturi Mask 14.0 55 11/03/16 03:07 75 18 95 Venturi Mask 14.0 55 11/03/16 00:55 98.1 11/03/16 00:00 97.5 74 18 145/69 94 Venturi Mask 45 11/02/16 23:05 74 20 99 Venturi Mask 14.0 55 11/02/16 23:00 73 18 95 Venturi Mask 14.0 55 11/02/16 22:00 Venturi Mask 6.0 45 11/02/16 19:50 98.1 74 25 130/62 97 Venturi Mask 15.0 11/02/16 19:41 95 Venturi Mask 14.0 55 11/02/16 19:41 Venturi Mask 14.0 55 11/02/16 19:30 75 20 98 Venturi Mask 14.0 55 11/02/16 19:20 74 18 95 Venturi Mask 14.0 55 11/02/16 16:00 97.7 76 25 135/61 91 Venturi Mask 15.0 11/02/16 15:55 74 20 95 Venturi Mask 14.0 55 11/02/16 15:40 84 22 92 Venturi Mask 14.0 55 11/02/16 12:11 98.1 74 21 150/74 98 Simple Mask 15.0 11/02/16 11:50 78 20 92 Nasal Cannula 4.0 11/02/16 11:40 74 20 94 Venturi Mask 14.0 55 Intake and Output 11/02/16 11/03/16 18:59 06:59 Intake Total 167.51 ml 1122.51 ml Output Total 560 ml 1150 ml Balance -392.49 ml -27.49 ml Intake IV Total 167.51 ml 1122.51 ml Output Urine Total 10 ml 510 ml Drainage Total 25 ml 65 ml Other 525 ml 575 ml Objective GENERAL: A well-developed female in no acute distress. on oxygen HEENT: Fairly negative. Extraocular movements grossly intact. NECK: Supple. No adenopathy. LUNGS: Moderate breath sounds. Symmetric. No rhonchi or wheezes. CARDIAC: S1 and S2. Regular rate and rhythm without murmurs, rubs, or gallops. ABDOMEN: some ongoing tenderness. some bowel sounds. no HSM EXTREMITIES: No cyanosis, clubbing, or edema. NEUROLOGIC: Grossly nonfocal. Alert and oriented x3. drains in place catheter draining Microbiology Date/Time Source Procedure Growth Status 11/01/16 23:30 Sputum Expectorated Gram Stain - Final Resulted 11/01/16 23:30 Sputum Expectorated Sputum Culture - Preliminary NORMAL UPPER RESPIRATORY AMALIA PRESENT Resulted Laboratory Tests 11/03/16 05:40: White Blood Count 15.1H, Red Blood Count 2.99L, Hemoglobin 9.5L, Hematocrit 29.5L, Mean Corpuscular Volume 99, Mean Corpuscular Hemoglobin 31.9H, Mean Corpuscular Hemoglobin Concent 32.3, Red Cell Distribution Width 13.4, Platelet Count 226, Mean Platelet Volume 7.4, Neutrophils (%) (Auto) 84.5H, Lymphocytes ( %) (Auto) 8.0L, Monocytes (%) (Auto) 5.0, Eosinophils (%) (Auto) 1.9, Basophils (%) (Auto) 0.5, Sodium Level 152H, Potassium Level 4.8, Chloride Level 112H, Carbon Dioxide Level 27, Anion Gap 13, Blood Urea Nitrogen 18, Creatinine 0.7, Estimat Glomerular Filtration Rate , Glucose Level 195H, Calcium Level 8.9 Current Medications Medications (Trade) Dose Ordered Sig/Hosea Route PRN Reason Start Time Stop Time Status Last Admin Dose Admin Acetaminophen (Tylenol) 650 mg Q6H PRN ORAL Mild Pain (Pain Scale 1-3) 11/01/16 11:00 12/01/16 10:59 Albuterol/ Ipratropium (DuoNeb 0.5-3(2.5)mg/3ml) 3 ml Q4HRT HHN 11/01/16 11:00 11/06/16 10:59 11/03/16 06:42 Amlodipine Besylate 5 mg 5 mg DAILY ORAL 11/01/16 16:00 12/01/16 15:59 11/03/16 08:48 Dextrose (Dextrose 50%) STAT PRN IV Hypoglycemia 11/01/16 11:00 12/01/16 10:59 Dextrose/Sodium Chloride (D5 0.45% NS) 1,000 ml @ 75 mls/hr [id number] IV 11/03/16 10:00 12/03/16 09:59 UNV Hydromorphone HCl (Dilaudid) 1 mg Q3H PRN IVP pain score 4-6 11/01/16 11:00 11/08/16 10:59 11/03/16 08:51 Insulin Aspart (NovoLOG) BEFORE MEALS AND HS SUBQ 11/01/16 16:30 12/01/16 16:29 11/03/16 06:32 Ketorolac Tromethamine (Toradol 30mg) 15 mg Q6HR IV 11/01/16 12:15 11/06/16 12:14 11/03/16 06:31 Ondansetron HCl (Zofran) 4 mg Q6H PRN IVP Nausea & Vomiting 11/01/16 11:00 12/01/16 10:59 Piperacillin Sod/ Tazobactam Sod/ Dextrose (Zosyn/D5W) 110 ml @ 27.5 mls/hr Q8HR@0000,0800,1600 IVPB 11/01/16 16:00 11/08/16 15:59 11/03/16 08:48 MIKHAIL BUSTILLOS Nov 03, 2016 10:09
[2016-11-03] MEDS ORDERED: D5 1/2NS 1,000 ML IV SCH (11:00)
--- NOTE | 2016-11-03 12:34 | General Progress Note ---
Progress Note Progress Note Patient is doing better today. Passed Bhavin 3 times. Abdomen is soft FERDINAND 300cc removed. Catheters irrigated to clear. Labs stable Plan: Will start clear liq diet and ambulate Dariel Elizabeth MD Nov 03, 2016 12:34
[2016-11-03] MEDS ORDERED: NS Irrig 1000ml ONE (17:06)
[2016-11-03 17:43] LABS: APPEARANCE,URINE CLEAR; KETONES,URINE NEGATIVE (NEGATIVE); LEUKOCYTE ESTERASE ,URINE 2+ (NEGATIVE); NITRITE,URINE NEGATIVE (NEGATIVE); PH,URINE 8 (4.5-8.0); PROTEIN,URINE 1+ (NEGATIVE); UROBILINOGEN,URINE NORMAL MG/DL (0.0-1.0)
[2016-11-03 18:28] LABS: BACTERIA,URINE OCCASIONAL /HPF; RBC,URINE TNTC /HPF (0 - 2)
[2016-11-03] MEDS ORDERED: 1/2 NS 1000ml IV ONE (19:47)
[2016-11-03] MEDS ORDERED: Tubing IV Secondary IV ONE (19:47)
--- NOTE | 2016-11-03 21:08 | Consultation ---
DATE OF CONSULTATION: 11/03/2016 INFECTIOUS DISEASE CONSULTATION: This consult is for coverage of Dr. Altamirano. PRIMARY ATTENDING PHYSICIAN: Dariel Elizabeth M.D. MEDICAL PHYSICIAN: Kale Iniguez M.D. REASON FOR CONSULTATION: Leukocytosis and COPD exacerbation. HISTORY OF PRESENT ILLNESS: The patient is a 80-year-old white female admitted on 10/30/2016 for bladder surgery. She had history of bladder cancer. She had surgery on 10/30/2016 that include Radical cystectomy with neoblader. The patient has history of heavy smoking and had cough that is productive that changed after the surgery. The patient _has persistent leukocytosis. No significant fever. PAST MEDICAL HISTORY: Significant for diabetes mellitus, hypertension, anemia, and nicotine abuse. MEDICATIONS: Insulin, Zosyn that started on 11/01/2016, amlodipine, Toradol, Tylenol, hydromorphone, DuoNeb inhaler, and Zofran. ALLERGIES: No known drug allergy. SOCIAL HISTORY: Originally from [place]. She has history of smoking up to two pack a day. She has two children. REVIEW OF SYSTEMS: No significant fever and chills. Shortness of breath decreased. Productive cough. No nausea. No vomiting. She has diarrhea. She has pain in surgical site. PHYSICAL EXAMINATION: VITAL SIGNS: Temperature 97.9 degrees, pulse 75, and blood pressure 147/61. GENERAL APPEARANCE: No acute distress. Seems awake, alert, and obese. BMI 37.6 . HEAD AND NECK: [place] conjunctivae. HEART: Regular. LUNGS: Clear. ABDOMEN: Soft and nontender. : She has Marie catheter. Slight hematuria. EXTREMITIES: She has no edema. NEUROLOGIC: She is awake, alert, and oriented. Ambulatory. LABORATORY AND DIAGNOSTIC DATA: WBC 15.1, hemoglobin 9.5, hematocrit 29.5, and platelets 226,000. Sodium 152, potassium 4.2, chloride 112, bicarbonate 27, BUN 18, and creatinine 0.7. V/Q scan was negative. Chest x-ray atelectasis in the left lung base. IMPRESSION: Persistent leukocytosis gradually improving. The source of infection might be chronic obstructive pulmonary disease exacerbation. The patient has history of heavy smoking. We will try to rule out urinary tract infection after the bladder surgery. The patient has anemia, diabetes mellitus, and obesity. RECOMMENDATIONS: We will continue with Zosyn. We will follow up with sputum culture. We will obtain UA and urine culture. At the end of my exam, I thank, Dr. Abhishek Pete, for involving me in the care of this patient. Leon Marcum M.D. DR: [place] JOB#: [id number] CC: BRENNAN
[2016-11-04] VITALS (7 sets, daily range): BP systolic 123–148; BP diastolic 53–93
[2016-11-04] MEDS: DuoNeb 0.5-3(2.5)mg/3ml neb HHN SCH ×7 (00:15→22:30)
[2016-11-04] MEDS: Piperacillin/Tazobactam 3.375 GM in D5W 110 ML IVPB SCH ×2 (00:27→07:24)
[2016-11-04] MEDS: Ketorolac 30mg Inj IV SCH ×4 (06:00→17:10)
[2016-11-04] MEDS: NovoLOG Insulin Flexpen SUBQ SCH ×4 (06:37→21:36)
[2016-11-04 08:09] LABS: BASOPHILS % (AUTO) 0.9 % (0.0-2.0); LYMPHOCYTES % (AUTO) 19.1 % (20.0-45.0); MEAN CORPUSCULAR HEMOGLOBIN 31.5 PG (27.0-31.0); MEAN CORPUSCULAR HGB CONC 32.8 G/DL (32.0-36.0); MEAN CORPUSCULAR VOLUME 96 FL (80-99); MEAN PLATELET VOLUME 7.5 FL (6.5-10.1); MONOCYTES % (AUTO) 8.2 % (1.0-10.0); NEUTROPHILS % (AUTO) 63.7 % (45.0-75.0); PLATELET COUNT 242 K/UL (150-450); RED BLOOD COUNT 3.12 M/UL (4.20-5.40); RED CELL DISTRIBUTION WIDTH 12.6 % (11.6-14.8); WHITE BLOOD COUNT 10.1 K/UL (4.8-10.8)
[2016-11-04 08:29] LABS: ANION GAP 15 (5-15); CALCIUM 8.4 mg/dL (8.6-10.2); CARBON DIOXIDE 28 mEQ/L (20-30); CHLORIDE 102 mEQ/L (98-107); CREATININE 0.7 mg/dL (0.5-0.9); HEMOLYSIS 2; POTASSIUM 3.3 mEQ/L (3.4-4.9); SODIUM 145 mEQ/L (135-145)
--- NOTE | 2016-11-04 09:31 | Pulmonology Progress Note ---
Assessment/Plan Assessment/Plan IMPRESSION: 1. Acute renal insufficiency, 2. Hypertension per history. 3. Long-standing history of smoking. 4. Bladder cancer, status post resection 5. Hypoxemia 6. Co2 retention 7. ?COPD 8. ?CHACHO 9. Hypoxemia PLAN taper fi02; further maybe able to dc oxygen monitor fluid status; changed to d5w empiric antibiotics ID evaluation noted repeat labs noted post operative care SCD. ambulate advance diet per Subjective Allergies: Coded Allergies: No Known Allergies (Unverified , 10/29/16) Subjective awake now on nasal cannula walking with therapist wbc normal Objective Last 24 Hour Vital Signs Date Time Temp Pulse Resp B/P Pulse Ox O2 Delivery O2 Flow Rate FiO2 11/04/16 08:00 97.7 62 20 130/53 100 Nasal Cannula 2.0 11/04/16 04:00 97.7 58 20 127/69 92 Room Air 11/04/16 03:28 62 16 94 Nasal Cannula 2.0 28 11/04/16 03:20 61 16 92 Nasal Cannula 2.0 28 11/04/16 00:20 82 16 96 Room Air 21 11/04/16 00:17 77 16 90 Room Air 21 11/03/16 23:58 97.0 60 18 134/76 91 Room Air 11/03/16 22:00 18 94 Room Air 11/03/16 20:46 16 96 Nasal Cannula 2.0 11/03/16 20:10 65 16 95 Nasal Cannula 2.5 11/03/16 20:08 Nasal Cannula 2.5 11/03/16 20:08 95 Nasal Cannula 2.5 11/03/16 20:07 64 16 95 Simple Mask 2.5 11/03/16 20:00 97.0 60 18 119/61 94 Room Air 11/03/16 20:00 97.0 60 18 119/61 94 Nasal Cannula 2.0 11/03/16 18:57 19 100 Nasal Cannula 4.0 11/03/16 16:13 93 18 93 Nasal Cannula 4.0 11/03/16 16:11 66 18 84 Room Air 11/03/16 16:00 97.7 66 18 124/67 93 Room Air 11/03/16 12:32 93 Room Air 11/03/16 11:57 97.9 75 20 147/61 97 Venturi Mask 15.0 11/03/16 11:57 97.9 11/03/16 10:30 73 20 100 Venturi Mask 12.0 45 11/03/16 10:25 72 18 98 Venturi Mask 12.0 45 Intake and Output 11/03/16 11/04/16 19:00 07:00 Intake Total 1460.0 ml 300 ml Output Total 3780 ml 1125 ml Balance -2320.0 ml -825 ml Intake Oral 950 ml 200 ml IV Total 510.0 ml 100 ml Output Urine Total 2650 ml 850 ml Drainage Total 30 ml Other 1100 ml 275 ml Objective GENERAL: A well-developed female in no acute distress. on oxygen HEENT: Fairly negative. Extraocular movements grossly intact. NECK: Supple. No adenopathy. LUNGS: Moderate breath sounds. Symmetric. No rhonchi or wheezes. CARDIAC: S1 and S2. Regular rate and rhythm without murmurs, rubs, or gallops. ABDOMEN: less tenderness. some bowel sounds. no HSM EXTREMITIES: No cyanosis, clubbing, or edema. NEUROLOGIC: Grossly nonfocal. Alert and oriented x3. drains in place Microbiology Date/Time Source Procedure Growth Status 11/01/16 23:30 Sputum Expectorated Gram Stain - Final Resulted 11/01/16 23:30 Sputum Expectorated Sputum Culture - Preliminary NORMAL UPPER RESPIRATORY AMALIA AT 24 ... Resulted Laboratory Tests 11/03/16 16:30: Urine Color Pale yellow, Urine Appearance Clear, Urine pH 8, Urine Specific [place] 1.010, Urine Protein 1+H, Urine Glucose (UA) 3+H, Urine Ketones Negative , Urine Occult Blood 5+H, Urine Nitrite Negative, Urine Bilirubin Negative, Urine Urobilinogen Normal, Urine Leukocyte Esterase 2+H, Urine RBC TntcH, Urine WBC 2-4, Urine Squamous Epithelial Cells None, Urine Bacteria Occasional 11/04/16 07:35: White Blood Count 10.1, Red Blood Count 3.12L, Hemoglobin 9.8L, Hematocrit 29.9L , Mean Corpuscular Volume 96, Mean Corpuscular Hemoglobin 31.5H, Mean Corpuscular Hemoglobin Concent 32.8, Red Cell Distribution Width 12.6, Platelet Count 242, Mean Platelet Volume 7.5, Neutrophils (%) (Auto) 63.7, Lymphocytes (% ) (Auto) 19.1L, Monocytes (%) (Auto) 8.2, Eosinophils (%) (Auto) 8.0H, Basophils (%) (Auto) 0.9, Sodium Level 145, Potassium Level 3.3L, Chloride Level 102, Carbon Dioxide Level 28, Anion Gap 15, Blood Urea Nitrogen 12, Creatinine 0.7, Estimat Glomerular Filtration Rate , Glucose Level 185H, Calcium Level 8.4L Current Medications Medications (Trade) Dose Ordered Sig/Hosea Route PRN Reason Start Time Stop Time Status Last Admin Dose Admin Acetaminophen (Tylenol) 650 mg Q6H PRN ORAL Mild Pain (Pain Scale 1-3) 11/01/16 11:00 12/01/16 10:59 Albuterol/ Ipratropium (DuoNeb 0.5-3(2.5)mg/3ml) 3 ml Q4HRT HHN 11/01/16 11:00 11/06/16 10:59 11/04/16 03:20 Amlodipine Besylate (Norvasc) 5 mg DAILY ORAL 11/01/16 16:00 12/01/16 15:59 11/03/16 08:48 Dextrose (Dextrose 50%) STAT PRN IV Hypoglycemia 11/01/16 11:00 12/01/16 10:59 Hydromorphone HCl (Dilaudid) 1 mg Q3H PRN IVP pain score 4-6 11/01/16 11:00 11/08/16 10:59 11/03/16 19:03 Insulin Aspart (NovoLOG) BEFORE MEALS AND HS SUBQ 11/01/16 16:30 12/01/16 16:29 11/04/16 06:37 Ketorolac Tromethamine (Toradol 30mg) 15 mg Q6HR IV 11/01/16 12:15 11/06/16 12:14 11/03/16 17:30 Levofloxacin (Levaquin) 250 mg DAILY ORAL 11/04/16 09:15 11/11/16 09:14 UNV Ondansetron HCl (Zofran) 4 mg Q6H PRN IVP Nausea & Vomiting 11/01/16 11:00 12/01/16 10:59 MIKHAIL BUSTILLOS Nov 04, 2016 09:31
--- NOTE | 2016-11-04 10:54 | Infectious Diseases Prog Note ---
Assessment/Plan Assessment/Plan A: COPD exacerbation Leukocytosis resolved Bladder cancer s/p cystectomy Anemia Obesity P; agree with Levaquin Subjective ROS Limited/Unobtainable: No Constitutional: Reports: no symptoms Respiratory: Reports: productive cough Gastrointestinal/Abdominal: Reports: no symptoms Genitourinary: Reports: no symptoms Allergies: Coded Allergies: No Known Allergies (Unverified , 10/29/16) Objective Vital Signs Last 24 Hour Vital Signs Date Time Temp Pulse Resp B/P Pulse Ox O2 Delivery O2 Flow Rate FiO2 11/04/16 08:00 97.7 62 20 130/53 100 Nasal Cannula 2.0 11/04/16 04:00 97.7 58 20 127/69 92 Room Air 11/04/16 03:28 62 16 94 Nasal Cannula 2.0 28 11/04/16 03:20 61 16 92 Nasal Cannula 2.0 28 11/04/16 00:20 82 16 96 Room Air 21 11/04/16 00:17 77 16 90 Room Air 21 11/03/16 23:58 97.0 60 18 134/76 91 Room Air 11/03/16 22:00 18 94 Room Air 11/03/16 20:46 16 96 Nasal Cannula 2.0 11/03/16 20:10 65 16 95 Nasal Cannula 2.5 11/03/16 20:08 Nasal Cannula 2.5 11/03/16 20:08 95 Nasal Cannula 2.5 11/03/16 20:07 64 16 95 Simple Mask 2.5 11/03/16 20:00 97.0 60 18 119/61 94 Room Air 11/03/16 20:00 97.0 60 18 119/61 94 Nasal Cannula 2.0 11/03/16 18:57 19 100 Nasal Cannula 4.0 11/03/16 16:13 93 18 93 Nasal Cannula 4.0 11/03/16 16:11 66 18 84 Room Air 11/03/16 16:00 97.7 66 18 124/67 93 Room Air 11/03/16 12:32 93 Room Air 11/03/16 11:57 97.9 75 20 147/61 97 Venturi Mask 15.0 11/03/16 11:57 97.9 Height (Feet): 5 Height (Inches): 1.00 Weight (Pounds): 199 General Appearance: no acute distress HEENT: mucous membranes moist Respiratory/Chest: lungs clear Cardiovascular: normal rate Abdomen: soft, non tender Genitourinary: other - Marie catheter Extremities: no edema Neurologic/Psychiatric: alert, oriented x 3, responsive Microbiology Date/Time Source Procedure Growth Status 11/01/16 23:30 Sputum Expectorated Gram Stain - Final Resulted 11/01/16 23:30 Sputum Expectorated Sputum Culture - Preliminary NORMAL UPPER RESPIRATORY AMALIA AT 24 ... Resulted Laboratory Tests Test 11/03/16 16:30 11/04/16 07:35 Urine Color Pale yellow Urine Appearance Clear Urine pH 8 (4.5-8.0) Urine Specific Universal 1.010 (1.005-1.035) Urine Protein 1+ (NEGATIVE) H Urine Glucose (UA) 3+ (NEGATIVE) H Urine Ketones Negative (NEGATIVE) Urine Occult Blood 5+ (NEGATIVE) H Urine Nitrite Negative (NEGATIVE) Urine Bilirubin Negative (NEGATIVE) Urine Urobilinogen Normal MG/DL (0.0-1.0) Urine Leukocyte Esterase 2+ (NEGATIVE) H Urine RBC Tntc /HPF (0 - 2) H Urine WBC 2-4 /HPF (0 - 2) Urine Squamous Epithelial Cells None /LPF (NONE/OCC) Urine Bacteria Occasional /HPF (NONE) White Blood Count 10.1 K/UL (4.8-10.8) Red Blood Count 3.12 M/UL (4.20-5.40) L Hemoglobin 9.8 G/DL (12.0-16.0) L Hematocrit 29.9 % (37.0-47.0) L Mean Corpuscular Volume 96 FL (80-99) Mean Corpuscular Hemoglobin 31.5 PG (27.0-31.0) H Mean Corpuscular Hemoglobin Concent 32.8 G/DL (32.0-36.0) Red Cell Distribution Width 12.6 % (11.6-14.8) Platelet Count 242 K/UL (150-450) Mean Platelet Volume 7.5 FL (6.5-10.1) Neutrophils (%) (Auto) 63.7 % (45.0-75.0) Lymphocytes (%) (Auto) 19.1 % (20.0-45.0) L Monocytes (%) (Auto) 8.2 % (1.0-10.0) Eosinophils (%) (Auto) 8.0 % (0.0-3.0) H Basophils (%) (Auto) 0.9 % (0.0-2.0) Sodium Level 145 mEQ/L (135-145) Potassium Level 3.3 mEQ/L (3.4-4.9) L Chloride Level 102 mEQ/L (98-107) Carbon Dioxide Level 28 mEQ/L (20-30) Anion Gap 15 (5-15) Blood Urea Nitrogen 12 mg/dL (7-23) Creatinine 0.7 mg/dL (0.5-0.9) Estimat Glomerular Filtration Rate mL/min (>60) Glucose Level 185 mg/dL (74-106) H Calcium Level 8.4 mg/dL (8.6-10.2) L Current Medications Medications (Trade) Dose Ordered Sig/Hosea Route PRN Reason Start Time Stop Time Status Last Admin Dose Admin Acetaminophen (Tylenol) 650 mg Q6H PRN ORAL Mild Pain (Pain Scale 1-3) 11/01/16 11:00 12/01/16 10:59 Albuterol/ Ipratropium (DuoNeb 0.5-3(2.5)mg/3ml) 3 ml Q4HRT HHN 11/01/16 11:00 11/06/16 10:59 11/04/16 03:20 Amlodipine Besylate (Norvasc) 5 mg DAILY ORAL 11/01/16 16:00 12/01/16 15:59 11/03/16 08:48 Dextrose (Dextrose 50%) STAT PRN IV Hypoglycemia 11/01/16 11:00 12/01/16 10:59 Docusate Sodium (Colace) 100 mg TWICE A DAY ORAL 11/04/16 10:30 12/04/16 10:29 Hydromorphone HCl (Dilaudid) 1 mg Q3H PRN IVP pain score 4-6 11/01/16 11:00 11/08/16 10:59 11/03/16 19:03 Insulin Aspart (NovoLOG) BEFORE MEALS AND HS SUBQ 11/01/16 16:30 12/01/16 16:29 11/04/16 06:37 Ketorolac Tromethamine (Toradol 30mg) 15 mg Q6HR IV 11/01/16 12:15 11/06/16 12:14 11/03/16 17:30 Levofloxacin (Levaquin) 250 mg DAILY ORAL 11/04/16 10:00 11/11/16 09:59 Ondansetron HCl (Zofran) 4 mg Q6H PRN IVP Nausea & Vomiting 11/01/16 11:00 12/01/16 10:59 MARTIN LEDESMA Nov 04, 2016 10:54
[2016-11-04] MEDS: Docusate 100mg cap ORAL SCH ×2 (11:39→17:08)
[2016-11-04] MEDS ORDERED: NS Irrig 1000ml ONE (15:20)
--- NOTE | 2016-11-04 18:17 | Internal Med Progress Note ---
Subjective Date of Service: Nov 04, 2016 Physician Name Rox Velázquez Attending Physician Dariel Elizabeth MD Current Medications Medications (Trade) Dose Ordered Sig/Hosea Route PRN Reason Start Time Stop Time Status Last Admin Dose Admin Acetaminophen (Tylenol) 650 mg Q6H PRN ORAL Mild Pain (Pain Scale 1-3) 11/01/16 11:00 12/01/16 10:59 Albuterol/ Ipratropium (DuoNeb 0.5-3(2.5)mg/3ml) 3 ml Q4HRT HHN 11/01/16 11:00 11/06/16 10:59 11/04/16 16:15 Amlodipine Besylate (Norvasc) 5 mg DAILY ORAL 11/01/16 16:00 12/01/16 15:59 11/04/16 11:39 Dextrose (Dextrose 50%) STAT PRN IV Hypoglycemia 11/01/16 11:00 12/01/16 10:59 Docusate Sodium (Colace) 100 mg TWICE A DAY ORAL 11/04/16 10:30 12/04/16 10:29 11/04/16 17:08 Hydromorphone HCl (Dilaudid) 1 mg Q3H PRN IVP pain score 4-6 11/01/16 11:00 11/08/16 10:59 11/03/16 19:03 Insulin Aspart (NovoLOG) BEFORE MEALS AND HS SUBQ 11/01/16 16:30 12/01/16 16:29 11/04/16 17:08 Ketorolac Tromethamine (Toradol 30mg) 15 mg Q6HR IV 11/01/16 12:15 11/06/16 12:14 11/03/16 17:30 Levofloxacin (Levaquin) 250 mg DAILY ORAL 11/04/16 10:00 11/11/16 09:59 11/04/16 11:39 Ondansetron HCl (Zofran) 4 mg Q6H PRN IVP Nausea & Vomiting 11/01/16 11:00 12/01/16 10:59 Allergies: Coded Allergies: No Known Allergies (Unverified , 10/29/16) ROS Limited/Unobtainable: No Constitutional: Reports: no symptoms HEENT: Reports: no symptoms Cardiovascular: Reports: no symptoms Respiratory: Reports: no symptoms Gastrointestinal/Abdominal: Reports: abdominal pain Genitourinary: Reports: no symptoms Neurologic/Psychiatric: Reports: no symptoms Subjective 80 YO F with bladder cancer; S/P cystectomy, hysterectomy, oophorectomy and creation of intestinal neobladder on 10/31/16. Cover for [facility] Med-Dr Gooden. Objective Last Vital Signs Date Time Temp Pulse Resp B/P Pulse Ox O2 Delivery O2 Flow Rate FiO2 11/04/16 16:46 97.7 99 20 134/93 100 Room Air 11/04/16 16:15 2.0 11/04/16 16:15 28 General Appearance: WD/WN, no apparent distress, alert EENT: PERRL/EOMI, normal ENT inspection Neck: non-tender, normal alignment, supple Cardiovascular: normal peripheral pulses, normal rate, regular rhythm, no gallop/murmur, no JVD Respiratory/Chest: chest wall non-tender, lungs clear, normal breath sounds, no respiratory distress, no accessory muscle use Abdomen: no organomegaly, no mass, decreased bowel sounds, guarding, tender Extremities: normal range of motion Skin: normal pigmentation, warm/dry Laboratory Tests Test 11/04/16 07:35 White Blood Count 10.1 K/UL (4.8-10.8) Red Blood Count 3.12 M/UL (4.20-5.40) L Hemoglobin 9.8 G/DL (12.0-16.0) L Hematocrit 29.9 % (37.0-47.0) L Mean Corpuscular Volume 96 FL (80-99) Mean Corpuscular Hemoglobin 31.5 PG (27.0-31.0) H Mean Corpuscular Hemoglobin Concent 32.8 G/DL (32.0-36.0) Red Cell Distribution Width 12.6 % (11.6-14.8) Platelet Count 242 K/UL (150-450) Mean Platelet Volume 7.5 FL (6.5-10.1) Neutrophils (%) (Auto) 63.7 % (45.0-75.0) Lymphocytes (%) (Auto) 19.1 % (20.0-45.0) L Monocytes (%) (Auto) 8.2 % (1.0-10.0) Eosinophils (%) (Auto) 8.0 % (0.0-3.0) H Basophils (%) (Auto) 0.9 % (0.0-2.0) Sodium Level 145 mEQ/L (135-145) Potassium Level 3.3 mEQ/L (3.4-4.9) L Chloride Level 102 mEQ/L (98-107) Carbon Dioxide Level 28 mEQ/L (20-30) Anion Gap 15 (5-15) Blood Urea Nitrogen 12 mg/dL (7-23) Creatinine 0.7 mg/dL (0.5-0.9) Estimat Glomerular Filtration Rate mL/min (>60) Glucose Level 185 mg/dL (74-106) H Calcium Level 8.4 mg/dL (8.6-10.2) L Microbiology Date/Time Source Procedure Growth Status 11/01/16 23:30 Sputum Expectorated Gram Stain - Final Resulted 11/01/16 23:30 Sputum Expectorated Sputum Culture - Preliminary NORMAL UPPER RESPIRATORY AMALIA AT 24 ... Resulted Intake and Output 11/03/16 11/04/16 19:00 07:00 Intake Total 1460.0 ml 300 ml Output Total 3780 ml 1125 ml Balance -2320.0 ml -825 ml Intake Oral 950 ml 200 ml IV Total 510.0 ml 100 ml Output Urine Total 2650 ml 850 ml Drainage Total 30 ml Other 1100 ml 275 ml Assessment/Plan Problem List: (1) Bladder cancer Assessment & Plan: S/P cystectomy, hysterectomy, oophorectomy, and creation of intestinal neobladder on 10/31/16. See surgery note. (2) Renal failure (3) HTN (hypertension) Assessment & Plan: Cont norvasc (4) Diabetes mellitus Assessment & Plan: Cont novolog sliding scale. (5) Obesity (6) Hypercholesteremia (7) Anemia, blood loss (8) Post-op pain Assessment & Plan: Cont prn Dilaudid Status: progressing Assessment/Plan Advance to diabetic diet. ROX VELÁZQUEZ Nov 04, 2016 18:17
[2016-11-05] MEDS: Ketorolac 30mg Inj IV SCH ×3 (00:30→12:00)
[2016-11-05] MEDS: DuoNeb 0.5-3(2.5)mg/3ml neb HHN SCH ×3 (02:51→11:03)
[2016-11-05 04:00] VITALS: BP 146/69
[2016-11-05] MEDS: NovoLOG Insulin Flexpen SUBQ SCH ×2 (06:46→12:31)
[2016-11-05 07:49] VITALS: BP 135/65
[2016-11-05] MEDS: Docusate 100mg cap ORAL SCH (08:04)
--- NOTE | 2016-11-05 08:32 | Pulmonology Progress Note ---
Assessment/Plan Assessment/Plan IMPRESSION: 1. Acute renal insufficiency, 2. Hypertension per history. 3. Long-standing history of smoking. 4. Bladder cancer, status post resection 5. Hypoxemia 6. Co2 retention 7. ?COPD 8. ?CHACHO 9. Hypoxemia PLAN off oxygen dc antibiotics ID evaluation noted repeat labs noted post operative care SCD. ambulate tolerating diet dc planning Subjective Allergies: Coded Allergies: No Known Allergies (Unverified , 10/29/16) Subjective awake now off oxygen tolerating po Objective Last 24 Hour Vital Signs Date Time Temp Pulse Resp B/P Pulse Ox O2 Delivery O2 Flow Rate FiO2 11/05/16 08:04 74 135/65 11/05/16 07:49 98.6 74 17 135/65 97 Room Air 11/05/16 07:10 97.7 11/05/16 04:00 97.7 101 19 146/69 93 Room Air 11/05/16 02:52 67 16 93 Room Air 21 11/05/16 02:52 Room Air 21 11/04/16 23:56 98.1 83 20 123/88 92 Room Air 11/04/16 22:34 69 18 95 Room Air 21 11/04/16 22:31 64 18 94 Room Air 21 11/04/16 20:00 98.2 80 20 148/54 97 Room Air 11/04/16 19:17 66 18 94 Room Air 21 11/04/16 19:13 66 18 93 Room Air 11/04/16 16:46 97.7 99 20 134/93 100 Room Air 11/04/16 16:15 Nasal Cannula 2.0 11/04/16 16:15 66 16 96 Nasal Cannula 2.0 11/04/16 16:15 96 Nasal Cannula 2.0 11/04/16 11:47 99.7 89 20 143/76 94 Room Air 11/04/16 11:39 89 143/76 Intake and Output 11/04/16 11/05/16 19:00 07:00 Intake Total 600 ml 940 ml Output Total 800 ml 3025 ml Balance -200 ml -2085 ml Intake Oral 600 ml 940 ml Output Urine Total 300 ml 1125 ml Other 500 ml 1900 ml Objective GENERAL: A well-developed female in no acute distress. off oxygen HEENT: Fairly negative. Extraocular movements grossly intact. NECK: Supple. No adenopathy. LUNGS: Moderate breath sounds. Symmetric. No rhonchi or wheezes. CARDIAC: S1 and S2. Regular rate and rhythm without murmurs, rubs, or gallops. ABDOMEN: minimal tenderness. noted bowel sounds. no HSM EXTREMITIES: No cyanosis, clubbing, or edema. NEUROLOGIC: Grossly nonfocal. Alert and oriented x3. drains in place Current Medications Medications (Trade) Dose Ordered Sig/Hosea Route PRN Reason Start Time Stop Time Status Last Admin Dose Admin Acetaminophen (Tylenol) 650 mg Q6H PRN ORAL Mild Pain (Pain Scale 1-3) 11/01/16 11:00 12/01/16 10:59 Albuterol/ Ipratropium (DuoNeb 0.5-3(2.5)mg/3ml) 3 ml Q4HRT HHN 11/01/16 11:00 11/06/16 10:59 11/05/16 07:04 Amlodipine Besylate (Norvasc) 5 mg DAILY ORAL 11/01/16 16:00 12/01/16 15:59 11/05/16 08:04 Dextrose (Dextrose 50%) STAT PRN IV Hypoglycemia 11/01/16 11:00 12/01/16 10:59 Docusate Sodium (Colace) 100 mg TWICE A DAY ORAL 11/04/16 10:30 12/04/16 10:29 11/05/16 08:04 Hydromorphone HCl (Dilaudid) 1 mg Q3H PRN IVP pain score 4-6 11/01/16 11:00 11/08/16 10:59 11/03/16 19:03 Insulin Aspart (NovoLOG) BEFORE MEALS AND HS SUBQ 11/01/16 16:30 12/01/16 16:29 11/05/16 06:46 Ketorolac Tromethamine (Toradol 30mg) 15 mg Q6HR IV 11/01/16 12:15 11/06/16 12:14 11/05/16 06:40 Levofloxacin (Levaquin) 250 mg DAILY ORAL 11/04/16 10:00 11/11/16 09:59 11/05/16 08:04 Ondansetron HCl (Zofran) 4 mg Q6H PRN IVP Nausea & Vomiting 11/01/16 11:00 12/01/16 10:59 MIKHAIL BUSTILLOS 28, 2017 08:32
[2016-11-05 12:00] VITALS: BP 130/74
--- NOTE | 2016-11-05 12:25 | Infectious Diseases Prog Note ---
Assessment/Plan Assessment/Plan antibiotics : levoquin A 1. pneumonia 2. leucocytosis resolved 3. bladder cancer 4. COPD exacerbation P 1. continue levoquin 2. will follow up cultures Subjective Constitutional: Denies: fever Respiratory: Denies: dry cough, shortness of breath Gastrointestinal/Abdominal: Denies: diarrhea, nausea, vomiting Musculoskeletal: Reports: pain - mild Allergies: Coded Allergies: No Known Allergies (Unverified , 10/29/16) Objective Vital Signs Last 24 Hour Vital Signs Date Time Temp Pulse Resp B/P Pulse Ox O2 Delivery O2 Flow Rate FiO2 11/05/16 08:04 74 135/65 11/05/16 07:49 98.6 74 17 135/65 97 Room Air 11/05/16 07:10 73 18 97 Room Air 11/05/16 07:10 97.7 11/05/16 07:04 96 Room Air 11/05/16 07:04 Room Air 11/05/16 07:04 71 17 96 Room Air 11/05/16 04:00 97.7 101 19 146/69 93 Room Air 11/05/16 02:52 67 16 93 Room Air 11/05/16 02:52 Room Air 11/04/16 23:56 98.1 83 20 123/88 92 Room Air 11/04/16 22:34 69 18 95 Room Air 11/04/16 22:31 64 18 94 Room Air 11/04/16 20:00 98.2 80 20 148/54 97 Room Air 11/04/16 19:17 66 18 94 Room Air 11/04/16 19:13 66 18 93 Room Air 11/04/16 16:46 97.7 99 20 134/93 100 Room Air 11/04/16 16:15 Nasal Cannula 2.0 11/04/16 16:15 66 16 96 Nasal Cannula 2.0 28 11/04/16 16:15 96 Nasal Cannula 2.0 Height (Feet): 5 Height (Inches): 1.00 Weight (Pounds): 199 Respiratory/Chest: lungs clear Cardiovascular: normal rate, regular rhythm, no gallop/murmur Abdomen: soft, non tender Extremities: no edema LETY CAST Nov 05, 2016 12:25
--- NOTE | 2016-11-05 15:25 | Internal Med Progress Note ---
Subjective Physician Name Ty Gooden Attending Physician Dariel Elizabeth MD Allergies: Coded Allergies: No Known Allergies (Unverified , 10/29/16) Subjective awake, responsive,NAD. Objective Last Vital Signs Date Time Temp Pulse Resp B/P Pulse Ox O2 Delivery O2 Flow Rate FiO2 11/05/16 12:00 98.4 72 18 130/74 97 Room Air 11/05/16 11:13 21 11/04/16 16:15 2.0 Intake and Output 11/04/16 11/05/16 19:00 07:00 Intake Total 600 ml 940 ml Output Total 800 ml 3025 ml Balance -200 ml -2085 ml Intake Oral 600 ml 940 ml Output Urine Total 300 ml 1125 ml Other 500 ml 1900 ml Objective GENERAL: A well-developed female in no acute distress, No SOB, awake. HEENT: PERRLA, EOMI. NECK: Supple. No adenopathy. LUNGS: decrease basal breath sounds. Symmetric. No rhonchi or wheezes. CARDIAC: S1 and S2. Regular rate and rhythm without murmurs, distant heart sound. ABDOMEN: generalized tenderness. Minimal bowel sounds. Obesity, Midline surgical incision intact, Right suprapubic cath. EXTREMITIES: No cyanosis, clubbing, or edema. NEUROLOGIC: Grossly nonfocal. Alert and oriented x3. CN 2-12 intact. Assessment/Plan Assessment/Plan IMPRESSION: 1. Acute renal insufficiency / ATN improving. 2. Hypertension 3. Long-standing history of smoking. 4. Invasive Bladder cancer, status post Radical cystectomy, hysterectomy, oophorectomy with creation of the intestinal neobladder. 5. Morbid Obesity. 6. DM 2 7. Dyslipidemia. 8. Hypoxemia. 9. Anemia RECOMMENDATION: DC Home today with HH. F/U with urology in 1 to 2 weeks. Ty Gooden MD Nov 05, 2016 15:25
--- NOTE | 2016-11-06 16:29 | Progress Note ---
DATE: 10/30/2016 SUBJECTIVE: This was followup on her surgery, radical cystectomy. The patient was stable overnight, however, she developed some breathing difficulties and was placed on a non-rebreather mask and Dr. Iniguez was consulted to see the patient. She is not in distress, however, she is saturating 92% on 100% non-rebreather. OBJECTIVE: ABDOMEN: Soft. Slightly distended after surgery. GENITOURINARY: Marie catheter put out 1200 mL of nola-colored urine. Suprapubic tube had 10 mL and Mike-Bullard drain had only 30 mL in it of serosanguineous fluid. I irrigated the catheter as well as the Mike-Bullard drain and there was no evidence of significant bleeding. PLAN: The patient will be transferred to the observation unit to monitor her breathing. Her duplex scan of the legs is negative and she is waiting for ventilation/perfusion scan today to rule out embolism. I will follow the patient closely together with Dr. Iniguez and Dr. Ty Gooden and we will about the patient's care. Dariel Elizabeth M.D. DR: EMILY JOB#: [id number] CC:
--- NOTE | 2016-11-07 14:41 | Discharge Summary ---
Discharge Summary Hospital Course Date of Admission Oct 30, 2016 at 06:02 Date of Discharge Nov 05, 2016 at 14:40 Admitting Diagnosis HPI Clif Cagle is a 80 year old female who was admitted on Oct 30, 2016 at 06 :02 for Bladder Cancer Hospital Course [id number] Discharge Discharge Disposition Patient was discharged to Home with Home Health() Discharge Diagnoses: Maxine Alegre NP Nov 07, 2016 14:41
--- NOTE | 2016-11-08 03:01 | Discharge Summary 2 SIG ---
DATE OF ADMISSION: 10/30/2016 DATE OF DISCHARGE: 11/05/2016 CONSULTANTS: 1. Ty Gooden M.D. 2. Kale Iniguez M.D. 3. Mireya Altamirano M.D. BRIEF HOSPITAL COURSE: The patient is a 80-year-old female who was diagnosed with bladder cancer underwent radical cystectomy, hysterectomy, oophorectomy with creation of neobladder on 10/30/2016. She was stable overnight; however, she developed some breathing difficulties and was placed on a non-rebreather mask. She was transferred to [facility] for closer monitoring. Duplex scan of the legs were negative for DVT. She had a V/Q scan, which was likewise negative. She was transferred back to medical floor. She had a Marie catheter and a Mike-Bullard with serosanguineous fluid. ID consult was done for evaluation of leukocytosis and was started on Zosyn, eventually was changed to Levaquin. Her breathing improved. She was taken off oxygenation and was discharged home with home health. FINAL DIAGNOSES: 1. Bladder carcinoma, status post radical cystectomy with neobladder. 2. Acute kidney injury/acute tubular necrosis. 3. Hypertension. 4. Morbid obesity. 5. Diabetes mellitus type 2. 6. Dyslipidemia. 7. Hypoxemia. 8. Anemia. Dariel Elizabeth M.D. I have been assigned to dictate discharge summary on this account and I was not involved in the patient's management. Maxine Alegre N.P. DR: REAGAN JOB#: [id number] CC:
--- NOTE | 2016-11-08 09:00 | Operative Note - Dictated ---
DATE OF OPERATION: 10/30/2016 OPERATING SURGEON: Stan Salguero M.D. BETA TESTER: Dariel Elizabeth M.D. PREOPERATIVE DIAGNOSIS: Invasive bladder cancer. POSTOPERATIVE DIAGNOSIS: Invasive bladder cancer. PROCEDURE PERFORMED: Ileocolic resection with ileocolic anastomosis. BACKGROUND: The patient is a 80-year-old female with invasive urinary bladder cancer who was elected to undergo radical cystectomy with neobladder reconstruction by Dr. Dariel Elizabeth. I was requested by urological surgeon, Dr. Dariel Elizabeth, to perform bowel resection to facilitate construction of a neobladder. DESCRIPTION OF FINDINGS: Normal intraabdominal anatomy. DESCRIPTION OF PROCEDURE: The patient was brought to the operating room, positioned, and surgery was started by Dr. Dariel Elizabeth. He performed a mid laparotomy. I was assisting him. When the abdomen was entered, both ureters were mobilized and divided, again this part of the surgery was performed by Dr. Elizabeth. At this point, I took over the course of the procedure, identified the cecum, the appendix, ascending colon and terminal ileum. After this, terminal ileum was divided with GI stapler with blue-load proximal to 25 cm proximal to the ileocecal valve and the ascending colon was divided using the same staple device 20 cm from the ileocecal valve distally. The appendix was mobilized, was resected using endoscopic cutter and appendiceal artery was ligated. After this, the proximal stump of the terminal ileum was brought next to the ascending colon and [id number] anatomical and functional ileocolic anastomosis was performed by placing the staple device in the terminal ileum and ascending colon and firing twice making sure the connection is patent. After this, the common enterotomy was closed by applying TA staple device. Hemostasis was confirmed and the mesentry was closed by running 2-0 Vicryl suture. After this, resection of the bladder and construction of neobladder was performed by Dr. Dairel Elizabeth and he will dictate the procedure separately. Stan Salguero M.D. DR: VALERIO JOB#: [id number] CC: BRENNAN
== END 2016-11-05 14:40 | disposition home health service (06) | DRG 653 ==
LOC: SDSOVERFLO 10-30 06:02 → 3E 10-30 15:30 → 2W 10-31 10:20 → 3E 11-01 11:30 → 4E 11-02 19:10 → 3E 11-04 09:12
PROC: 0UT70ZZ Resection of Bilateral Fallopian Tubes, Open Approach (ICD-10-PCS; principal; 2016-10-30 07:30)
PROC: 0UT90ZZ Resection of Uterus, Open Approach (ICD-10-PCS; principal; 2016-10-30 07:30)
PROC: 0T180ZB Bypass Bilateral Ureters to Bladder, Open Approach (ICD-10-PCS; principal; 2016-10-30 07:30)
PROC: 0TRB07Z Replacement of Bladder with Autologous Tissue Substitute, Open Approach (ICD-10-PCS; principal; 2016-10-30 07:30)
PROC: 0DBK0ZZ Excision of Ascending Colon, Open Approach (ICD-10-PCS; principal; 2016-10-30 07:30)
PROC: 0UT20ZZ Resection of Bilateral Ovaries, Open Approach (ICD-10-PCS; principal; 2016-10-30 07:30)
PROC: 0DBH0ZZ Excision of Cecum, Open Approach (ICD-10-PCS; principal; 2016-10-30 07:30)
PROC: 0DBB0ZZ Excision of Ileum, Open Approach (ICD-10-PCS; principal; 2016-10-30 07:30)
PROC: 0TTB0ZZ Resection of Bladder, Open Approach (ICD-10-PCS; principal; 2016-10-30 07:30)
PROC: 0UTC0ZZ Resection of Cervix, Open Approach (ICD-10-PCS; principal; 2016-10-30 07:30)
DX: C67.9 Malignant neoplasm of bladder, unspecified (principal); N17.0 Acute kidney failure with tubular necrosis; I10 Essential (primary) hypertension; R09.02 Hypoxemia; E78.5 Hyperlipidemia, unspecified; Z72.0 Tobacco use; E66.01 Morbid (severe) obesity due to excess calories; E11.9 Type 2 diabetes mellitus without complications; D64.9 Anemia, unspecified; Z79.4 Long term (current) use of insulin; E87.5 Hyperkalemia
CPT/HCPCS: 36415; 36600; 71010; 78580; 80048; 81003; 82330; 82803; 82962; 83735; 83880; 84100; 84484; 85007; 85025; 86850; 86900; 86901; 86920; 87070; 87081; 87205; 93970; 94003; 94150; 94640; 94760; J1815; J2405; J2710; J7620; J8499

== ENCOUNTER 2018-12-09 10:38 | Day surgery (SDC) | payer MEDICARE, OTHER ==
[~2018-12-09] VITALS: Ht 154.9 cm; Wt 92.1 kg
[2018-12-09] VITALS (11 sets, daily range): BP systolic 108–145; BP diastolic 54–72
[~2018-12-09 10:38] MED LIST: AMARYL PO; ASPIR 8181 MG ORAL; CARDURA PO; HYZAAR 100-251 EACH ORAL; METFORMIN HCL1000 M1 ORAL; NORVASC10 MG ORAL; NOVOLIN N100 UNIT/1 SUBQ; SIMVASTATIN40 MG ORAL; ceFAZolin sod 1 GM in NS 55 ML IVPB ONE
[2018-12-09] MEDS ORDERED: Bupivacaine w/Epi 0.5% 30ml Vial INJ ONE (10:44)
[2018-12-09] MEDS ORDERED: Bacitracin 50000 Units Vial ONE (10:44)
[2018-12-09] MEDS ORDERED: Bupivacaine 0.25% Inj 30ml INJ ONE (10:44)
[2018-12-09] MEDS ORDERED: NeoSporin Gu Irrig 1ml Amp IRRIG ONE (10:44)
[2018-12-09] MEDS ORDERED: ProvayBlue 5mg/ml 10ml amp INJ ONE (10:45)
--- NOTE | 2018-12-09 11:07 | Anethesia Preoperative Eval ---
Anesthesia Pre-op PMH/ROS General Date of Evaluation: Dec 09, 2018 Anesthesiologist: Nico ASA Score: ASA 3 Mallampati Score Class I : Soft palate, uvula, fauces, pillars visible Class II: Soft palate, uvula, fauces visible Class III: Soft palate, base of uvula visible Class IV: Only hard plate visible Mallampati Classification: Class II Surgeon: Glenn Diagnosis: Stress incontinence Surgical Procedure: Vaginal sling, cystocele repair, cystoscopy Anesthesia History: none Family History: no anesthesia problems Allergies: Coded Allergies: No Known Allergies (Unverified , 10/29/16) Medications: see eMAR Patient NPO?: Yes NPO Date: Dec 08, 2018 NPO Time: 22:00 Past Medical History Cardiovascular: Reports: HTN, other; Denies: CAD, VT, valve dz, arrhythmia Pulmonary: Denies: asthma, COPD, CHACHO, other Gastrointestinal/Genitourinary: Reports: GERD, other - bladder cancer s/p TURBT ; Denies: CRI, ESRD Neurologic/Psychiatric: Denies: dementia, CVA, depression/anxiety, TIA, other Endocrine: Reports: DM, hypothyroidism; Denies: steroids, other HEENT: Denies: cataract (L), cataract (R), glaucoma, EAGLE (L), EAGLE (R), other Hematology/Immune: Denies: anemia, DVT, bleeding disorder, other Musculoskeletal/Integumentary: Reports: OA; Denies: RA, DJD, DDD, edema, other Other: obesity PSxH Narrative: TURBT Anesthesia Pre-op Phys. Exam Physician Exam see chart Constitutional: NAD Cardiovascular: RRR Respiratory: CTA Airway Exam Mallampati Score: Class II Anesthesia Pre-op A/P Labs see chart Studies Pre-op Studies: EKG - sr Risk Assessment & Plan Assessment: ASA III Plan: GA Status Change Before Surgery: No Pre-Antibiotics Drug: Naty Cormier MD Dec 09, 2018 11:07
--- NOTE | 2018-12-09 11:12 | Pre-Procedure Note/Attestation ---
Pre-Procedure Note/Attestation Complete Prior to Procedure Planned Procedure: not applicable Procedure Narrative: vaginal sling cystocele repair cystoscopy Indications for Procedure Pre-Operative Diagnosis: stress incontinense Attestation I attest that I discussed the nature of the procedure; its benefits; risks and complications; and alternatives (and the risks and benefits of such alternatives ), prior to the procedure, with the patient (or the patient's legal field marketing representative). I attest that, if there was a reasonable possibility of needing a blood transfusion, the patient (or the patient's legal field marketing representative) was given the [facility] standardized written summary, pursuant to the Babatunde Eneida Blood Safety Act ([place] Health and Safety Code # 1645, as amended). I attest that I re-evaluated the patient just prior to the surgery and that there has been no change in the patient's H&P, except as documented below: Dariel Elizabeth MD Dec 09, 2018 11:12
[2018-12-09] MEDS ORDERED: LR 1000ml 1,000 ML IVLG SCH (11:37)
[2018-12-09] MEDS ORDERED: Ketorolac 30mg Inj IV PRN (11:45)
[2018-12-09] MEDS ORDERED: LORazepam Inj 2mg/ml 1ml IV PRN (11:45)
[2018-12-09] MEDS ORDERED: Midazolam 2mg/2ml Inj IVP PRN (11:45)
[2018-12-09] MEDS ORDERED: Hydromorphone 0.5mg/0.5ml inj IVP PRN (11:45)
[2018-12-09] MEDS ORDERED: fentaNYL 100 mcg/2 mL IV PRN (11:45)
[2018-12-09] MEDS ORDERED: DiphenhydrAMINE 50mg/ml Inj IVP PRN (11:45)
[2018-12-09] MEDS ORDERED: Midazolam 2mg/2ml Inj ONE (12:58)
[2018-12-09] MEDS ORDERED: fentaNYL 100 mcg/2 mL IV ONE (12:58)
[2018-12-09] MEDS ORDERED: Lidocaine 1% MPF 10mg/ml 5ml ONE (12:58)
[2018-12-09] MEDS ORDERED: Propofol 200mg/20ml IV ONE (12:58)
[2018-12-09] MEDS ORDERED: Sterile Water Irrig 1000ml IRRIG ONE (13:00)
[2018-12-09] MEDS ORDERED: Sterile Water For Irrig 2000ml IRRIG ONE (13:00)
[2018-12-09] MEDS ORDERED: NS Irrig 1000ml IRRIG ONE (13:06)
--- NOTE | 2018-12-09 13:54 | Brief Operative Note ---
Immediate Post Operative Note Operative Note Pre-op Diagnosis: stress incontinense Procedure: vaginal sling cystocele repair cystoscopy Post-op Diagnosis: same Surgeon: christel colorado Anesthesia: general Specimen: none Complications: none Condition: stable Fluids: 500 Estimated Blood Loss: minimal Implant(s) used?: Dariel Forrester MD Dec 09, 2018 13:54
[2018-12-09] MEDS ORDERED: Tylenol #3 tab (300mg/30mg) ORAL PRN (14:00)
[2018-12-09] MEDS ORDERED: HYDROcodone/Acetamin 5/325 tab ORAL PRN (14:00)
[2018-12-09] MEDS ORDERED: HYDROmorphone 1mg/ml Carpuject SUBQ PRN (14:00)
--- NOTE | 2018-12-09 14:07 | Immediate Post-Op Evaluation ---
Immediate Post-Op Evalulation Immediate Post-Op Evalulation Procedure: Vaginal sling, cystocele repair, cystoscopy Date of Evaluation: Dec 09, 2018 Time of Evaluation: 14:09 IV Fluids: 800 Blood Products: 0 Estimated Blood Loss: min Urinary Output: 0 Blood Pressure Systolic: 137 Blood Pressure Diastolic: 68 Pulse Rate: 74 Respiratory Rate: 17 O2 Sat by Pulse Oximetry: 98 Temperature (Fahrenheit): 97.2 Pain Score (1-10): 0 Nausea: No Vomiting: No Complications 0 Patient Status: awake, reacts, patent, none Hydration Status: adequate Drug: Ancef 2g Given Within 1 Hr of Incision: Yes Naty Agee MD Dec 09, 2018 14:07
--- NOTE | 2018-12-09 14:08 | 48 Hour Post Anesthesia Eval ---
Post Anesthesia Evaluation Procedure: Vaginal sling, cystocele repair, cystoscopy Date of Evaluation: Dec 09, 2018 Airway: patent Nausea: No Vomiting: No Pain Intensity: 0 Hydration Status: adequate Cardiopulmonary Status: at baseline Mental Status/LOC: patient returned to baseline Post-Anesthesia Complications: 0 Follow-up care needed: ready to discharge Naty Agee MD Dec 09, 2018 14:08
[2018-12-09] MEDS ORDERED: D5 1/2NS 1,000 ML IV SCH (17:00)
--- NOTE | 2018-12-10 21:45 | Operative Note - Dictated ---
DATE OF OPERATION: 12/09/2018 PREOPERATIVE DIAGNOSIS: Stress incontinence. POSTOPERATIVE DIAGNOSIS: Stress incontinence. OPERATIONS: Transvaginal cystocele repair, vaginal wall sling, and cystoscopy. OPERATED BY: Dariel Elizabeth M.D. ANESTHESIA: General. FINDINGS: Open urethral status, posterior bladder. INDICATIONS FOR SURGERY: The patient had actually radical surgery for bladder cancer and had cystectomy with neobladder and used perfusing pump. The stress incontinence status and urodynamics was performed in the office and she had a very low blood pressures. Discussed with the patient all the potential options for treatment including the stent replacement, diversion, or possible sling, but she wanted to start with a sling and repair of the vaginal descent. All potential complications were explained and she signed the consent. DESCRIPTION OF PROCEDURE: She was brought to the operating room, placed in lithotomy position, and prepped and draped in standard fashion. Under general anesthesia, incision was made in the mid urethra, which was skeletonized and using [employer] urethral sling device, bladder was placed in the standard position supporting the mid urethra. Additional sutures with interrupted 2-0 Vicryl sutures were placed to reapproximate pubocervical muscles supporting and set off the urethrovaginal prolapse. After, vaginal mucosa was closed with 3-0 Vicryl suture tight, vagina was packed. Cystoscopy was normal. No evidence of bladder perforation. The patient tolerated the procedure well. No evidence of complications. Dariel Elizabeth M.D. DR: MANUEL JOB#: [id number] CC:
== END 2018-12-09 17:00 | disposition home or self-care (01) ==
LOC: SUR 10:38
DX: N39.3 Stress incontinence (female) (male) (principal); Z85.51 Personal history of malignant neoplasm of bladder; I10 Essential (primary) hypertension; E03.9 Hypothyroidism, unspecified; K21.9 Gastro-esophageal reflux disease without esophagitis; M19.90 Unspecified osteoarthritis, unspecified site; E66.9 Obesity, unspecified; Z68.38 Body mass index [BMI] 38.0-38.9, adult; Z90.6 Acquired absence of other parts of urinary tract; Z96.0 Presence of urogenital implants; E11.40 Type 2 diabetes mellitus with diabetic neuropathy, unspecified; Z79.82 Long term (current) use of aspirin
CPT/HCPCS: 57288; 82962; C1771; J0690; J2250; J2704; J3010; 94003; 94150